=== PATIENT | male | born 1945 | race Two or more races ===

== ENCOUNTER 2024-08-16 11:37 | Emergency (ER) | payer OTHER, MEDICAID, SELFPAY ==
[2024-08-16 12:15] VITALS: BP 112/69; PULSE 73; RESP 18; TEMP 36.6; O2SAT 96; BMI 27.3
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
--- NOTE | 2024-08-16 13:00 | XR_ITS ---
Examination: CT cervical spine without contrast 2-D sagittal reconstructions 2-D coronal reconstructions 3-D reconstructions. Exam date and time:08/16/2024, 1:42 PM INDICATION: Trauma. No comparison imaging CTDI:vol (mGy) 8.26 DLP: (mGycm) 7 1 Technique: Multiple 2 mm axial sections of the cervical spine have been obtained. The coronal and sagittal reconstructions have been obtained. 3-D reconstructions have been obtained. Low dose protocols were performed. One or more of the following dose reduction techniques were used; automated exposure control, adjustment of the mA and/or KV according to patient size, use of iterative reconstruction technique. Findings: Normal cervical alignment and lordosis. No evidence of fracture, dislocation or subluxation. Multilevel degenerative changes at all levels throughout the cervical spine with disc space narrowing, endplate irregularities and large anterior marginal osteophytes. No evidence of soft tissue abnormality. Impression: No acute cervical fracture. Multilevel degenerative changes as above.
[2024-08-16 14:05] VITALS: BP 129/84; PULSE 82; RESP 16; TEMP 36.7; O2SAT 99
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
[2024-08-16 14:54] LABS: Basophils % (Auto) 0 % (0-2.5); Eosinophils # (Auto) 0.1 Thou/mm3 (0.0-0.5); Eosinophils % (Auto) 1 % (0-10); Hematocrit 38.8 % (41.0-53.0); Immature Granulocytes % (Auto) 0 % (0-0); Immature Granulocytes Auto 0.02 Thou/mm3 (0.00-0.00); Lymphocytes # (Auto) 1.4 Thou/mm3 (1.0-4.8); Lymphocytes % (Auto) 12 % (10-50); Mean Corpuscular HGB Conc 33.5 g/dl (31.0-37.0); Mean Corpuscular Hemoglobin 30.9 pg (25.0-35.0); Mean Corpuscular Volume 92 fL (80-100); Monocytes # (Auto) 0.9 Thou/mm3 (0.0-0.8); Monocytes % (Auto) 8 % (0-12); Neutrophils # (Auto) 8.4 Thou/mm3 (1.8-7.7); Neutrophils % (Auto) 77 % (37-80); Nucleated Red Blood Cell % 0 /100 WBC (0); Platelet Count 181 Thou/mm3 (140-440); RDW Standard Deviation 44.8 fL (35.1-43.9); Red Blood Count 4.21 Miln/mm3 (4.50-5.90); White Blood Count 10.9 Thou/mm3 (3.8-10.6)
[2024-08-16 15:17] LABS: INR 1.1 (0.9-1.3); Partial Thromboplastin Time 28.6 Seconds (22.0-36.0); Prothrombin Time 11.6 Seconds (9.0-12.2)
[2024-08-16 15:29] LABS: Alanine Aminotransferase 11 U/L (10-49); Albumin, Serum 3.6 gm/dL (3.4-4.8); Albumin/Globulin Ratio 1.4 (1.2-2.2); Alkaline Phosphatase 69 U/L (46-116); Anion Gap 7 (7-16); Aspartate Amino Transferase 15 U/L (0-34); BUN/Creatinine Ratio 18 Ratio (12-20); Bilirubin,Total 0.5 mg/dL (0.3-1.2); Blood Urea Nitrogen 22 mg/dL (9-23); Calcium 8.7 mg/dL (8.3-10.6); Carbon Dioxide 27.5 mMol/L (20.0-31.0); Chloride 107 mMol/L (98-107); Creatinine (Component) 1.2 mg/dL (0.6-1.3); Estimated Creatinine Clearance 46.3 mL/min (>60); Globulin 2.6 gm/dL (2.3-3.5); Glucose 114 mg/dL (74-106); Osmolality,Calculated 285 (275-295); Sodium 141 mMol/L (136-145); Total Protein 6.2 gm/dL (5.7-8.2); eGFR > 60 See Note
[2024-08-16 16:42] VITALS: BP 157/81; PULSE 70; RESP 18; TEMP 36.6; O2SAT 100
[2024-08-16] MEDS: HYDROcodone/APAP 5/325 TABLET 1 TAB PO (17:38)
[2024-08-16 18:04] VITALS: BP 131/88; PULSE 76; RESP 18; TEMP 36.6; O2SAT 100
== END 2024-08-16 18:22 | disposition home or self-care (01) ==
PROVIDERS: Emergency Provider Emergency Medicine; PCP Family Medicine
DX: S70.01XA Contusion of right hip, initial encounter (principal); S20.212A Contusion of left front wall of thorax, initial encounter; S00.93XA Contusion of unspecified part of head, initial encounter; I10 Essential (primary) hypertension; V03.90XA Pedestrian on foot injured in collision with car, pick-up truck or van, unspecified whether traffic or nontraffic accident, initial encounter; Y93.01 Activity, walking, marching and hiking; Y92.410 Unspecified street and highway as the place of occurrence of the external cause
CPT/HCPCS: 36415; 70450; 71250; 72125; 74176; 80053; 85025; 85610; 85730; 99284; A9270

== ENCOUNTER 2025-02-18 19:57 | Inpatient (IN) | payer OTHER, MEDICAID, MEDICARE, SELFPAY ==
[2025-02-18 20:08] VITALS: BP 170/93; PULSE 72; RESP 17; TEMP 37.1; O2SAT 97
[2025-02-18 20:09] VITALS: PULSE 88; RESP 18; O2SAT 96
--- NOTE | 2025-02-18 20:18 | PD.EDRME ---
Rapid Medical Screening Exam E Arrival date/time: 02/18/25 19:57 79M with history of HTN presents to ED with 1 day of ab pain and N/V. Chief Complaint: Abdominal Pain Vital signs: Vital Signs Temperature 98.8 F 02/18/25 20:08 Pulse Rate 72 02/18/25 20:08 Respiratory Rate 17 02/18/25 20:08 Blood Pressure 170/93 H 02/18/25 20:08 Pulse Oximetry (%) 97 02/18/25 20:08 Oxygen Delivery Method Room Air 02/18/25 20:08
[2025-02-18] MEDS: ONDANSETRON INJ 2 MG/ML INJ 2 ML 4 MG IV (20:51)
[2025-02-18 20:52] VITALS: BMI 24.6
[2025-02-18 20:52] LABS: Basophils # (Auto) 0.0 Thou/mm3 (0.0-0.2); Basophils % (Auto) 0 % (0-2.5); Eosinophils # (Auto) 0.0 Thou/mm3 (0.0-0.5); Eosinophils % (Auto) 0 % (0-10); Hematocrit 44.3 % (41.0-53.0); Hemoglobin 14.7 g/dL (13.5-16.0); Immature Granulocytes Auto 0.04 Thou/mm3 (0.00-0.00); Lymphocytes # (Auto) 1.1 Thou/mm3 (1.0-4.8); Lymphocytes % (Auto) 9 % (10-50); Mean Corpuscular HGB Conc 33.2 g/dl (31.0-37.0); Mean Corpuscular Hemoglobin 30.5 pg (25.0-35.0); Mean Corpuscular Volume 92 fL (80-100); Monocytes # (Auto) 0.8 Thou/mm3 (0.0-0.8); Monocytes % (Auto) 7 % (0-12); Neutrophils # (Auto) 10.2 Thou/mm3 (1.8-7.7); Neutrophils % (Auto) 84 % (37-80); Nucleated Red Blood Cell # 0.00 Thou/mm3 (0.00-0.00); Nucleated Red Blood Cell % 0 /100 WBC (0); Platelet Count 199 Thou/mm3 (140-440); RDW Standard Deviation 43.5 fL (35.1-43.9); Red Blood Count 4.82 Miln/mm3 (4.50-5.90); White Blood Count 12.2 Thou/mm3 (3.8-10.6)
--- NOTE | 2025-02-18 21:05 | PD.EDADULT ---
ED General RME/HPI General Chief complaint: Abdominal Pain Stated complaint: ABDOMINAL PAIN Time Seen by Provider: 02/18/25 20:59 Arrival date/time: 02/18/25 19:57 CC: Epigastric pain HPI onset abruptly approximately 3 hours ago denies right upper left upper quadrant abdominal pain admits to nausea and vomiting. Denies any lower quadrant abdominal pain patient states onset after eating food. No prior history of similar events. Patient is awake alert oriented with no active vomiting denies any chest pain shortness of breath or difficulty breathing. RME / HPI RME / HPI narrative: 02/18/25 19:57 79M with history of HTN presents to ED with 1 day of ab pain and N/V. Related Data Home Medications ?Medication ?Instructions ?Recorded ?Confirmed losartan 100 1 tab PO QDAY 10/31/22 02/19/25 mg-hydrochlorothiazide 12.5 mg tablet tamsulosin 0.4 mg capsule 0.4 mg PO QDAY 10/31/22 02/19/25 Allergies Allergy/AdvReac Type Severity Reaction Status Date / Time No Known Allergies Allergy Verified 02/18/25 20:09 Review of Systems Review of Systems Narrative Review of Systems: GEN: No fever, no chills, no weight loss EYES: No discharge, no visual changes, no pain HEENT: No ear pain, no congestion, no sore throat PULM: No shortness of breath, no cough, no congestion CV: No chest pain, no dyspnea on exertion, no palpitations GI: No nausea, no vomiting, no diarrhea, + pain, no constipation : No frequency, no urgency, no dysuria MUSC/SKEL: No joint pain, no back pain SKIN: No rash PSYCH: No hallucinations, no depression HEME/LYMPH: No easy bleeding or bruising tendencies NEURO: No weakness, no headache Past Medical History Past Medical History NEUROLOGIC: Negative Neurological Disorders or Seizures CARDIAC: Positive Hypertension; Negative Cardiac Disorders or Congestive Heart Failure RESPIRATORY: Negative Chronic Obstructive Pulmonary Disease (COPD) or Asthma GASTROINTESTINAL: Negative Gastrointestinal Disorders GENITOURINARY: Positive Genitourinary Disorders and Benign Prostatic Hyperplasia; Negative Renal Disease MUSCULOSKELETAL: Negative Musculoskeletal Disorders ENDOCRINE: Negative Endocrine Disorders, Diabetes Mellitus Type 1 or Diabetes Mellitus Type 2 HEMATOLOGIC: Negative Sickle Cell Disease OTHER HISTORY: Negative Blood Transfusions, Blood Transfusion Reaction, Anesthesia Reactions or Cancer Surgical History SURGICAL: Positive Eye Surgery Social History SMOKING STATUS: Never smoker SUBSTANCE USE: does not use ED Exam Narrative Physical exam: [General: In mild discomfort but not in any acute distress Head normocephalic HEENT: Within acceptable limits Neck is supple nontender Chest equal chest rise nontender to palpation Respiratory: Clear to auscultation no wheezes crackles or rubs CV: Rate rhythm is regular no murmurs rubs or clicks Abdomen: Mild epigastric pain with palpation no reflexive guarding rebound tenderness no left upper or right upper or lower abdominal pain with palpation. Positive bowel sounds all 4 quadrants. Back: No CVA tenderness no spinous process tenderness from cervical spine thoracic and lumbar spine Skin: Intact no petechiae rash induration ulceration or crepitus Extremities: Moving all extremity against resistance cap refill less than 2 seconds neurosensory intact Neuro: Awake alert oriented x3 Glascow coma 15 no focal deficits] Course Course Course Narrative: At 2248, patient's clinical presentation laboratory results and imaging discussed with Dr. Nova, who wants to wait for complete admission until the CT is read. Quality Measures none Orders Category Date Time Status CT Screening NOW Care 02/18/25 20:17 Active Insert IV NOW Care 02/18/25 20:17 Active Saline [Insert IV] NOW Care 02/18/25 21:[address] abdomen pelvis wo con Stat Exams 02/18/25 21:43 Completed US gall bladder Stat Exams 02/19/25 00:00 Completed Alcohol, Blood Medical Stat Lab 02/18/25 20:44 Completed CBC Stat Lab 02/18/25 20:44 Completed CMP [Comprehensive Metabolic Panel] Stat Lab 02/18/25 20:44 Completed Drug Screen,Urine Stat Lab 02/18/25 21:21 Completed Lipase Stat Lab 02/18/25 20:44 Completed Urinalysis, C/S if Indicated Stat Lab 02/18/25 21:21 Completed Morphine* Inj Med 02/18/25 21:41 Discontinued 4 mg IVP X1 ONE Ondansetron Inj [Zofran Inj] Med 02/18/25 20:17 Discontinued 4 mg IV X1 ONE Ondansetron Inj [Zofran Inj] Med 02/18/25 21:41 Discontinued 4 mg IVP X1 ONE Pantoprazole Inj [Protonix Inj] Med 02/18/25 20:17 Discontinued 40 mg IVP X1 ONE Sodium Chloride 0.9% 1000 ml [Ns] 1,000 ml Med 02/18/25 21:51 Active IV 100 mls/hr Sodium Chloride 0.9% 1000 ml [Ns] 1,000 ml Med 02/18/25 21:42 Discontinued IV 999 mls/hr hydrALAZINE INJ [Apresoline Inj] Med 02/18/25 21:53 Discontinued 20 mg IVP X1 ONE Vital Signs Vital signs: Vital Signs Temperature 98.8 F 02/18/25 20:08 Pulse Rate 72 02/18/25 20:08 Respiratory Rate 17 02/18/25 20:08 Blood Pressure 170/93 H 02/18/25 20:08 Pulse Oximetry (%) 97 02/18/25 20:08 Oxygen Delivery Method Room Air 02/18/25 20:08 Discharge Plan Plan Patient Disposition: Admit Acute Care w/in Hospital Patient condition on transfer: Stable Problem List Clinical Impression: Pancreatitis PA/[employer] Supervising Physician SIERRA/[employer] Supervising Physician: Tex Bal ENP [facility] Clinical Information Provided by: patient Medical Records reviewed [facility] Meds/Rx considered, not ordered None Labs/Rad/Tests considered, not ordered None Chronic Illness/Social Conditions Explain: Hypertension EKG EKG not done Labs Labs: interpreted by oh Lab(s) Interpretation(s): CMP shows CO2 of 31.3 no other electrolyte imbalances other than glucose of 196. T. bili at 0.8 AST 1689 ALT of 78, alk phos of 116 Lipase of 2853. Alcohol level is 0 UDS is negative Medication Administration(s) Medication Administration History Carvedilol (Carvedilol 3.125 Mg Tablet) 6.25 mg PO BIDWM [facility] Stop: 03/21/25 08:14 Last Admin: 02/19/25 08:33 Dose: 6.25 mg Documented By: ZORAIDA Chlordiazepoxide HCl (Chlordiazepoxide Hcl 25 Mg Capsule) 25 mg PO Q6HR PRN PRN Reason: CIWA >9 Stop: 02/21/25 00:19 Folic Acid (Folic Acid 1 Mg Tablet) 1 mg PO BID [facility] Stop: 02/24/25 08:59 Last Admin: 02/19/25 08:33 Dose: 1 mg Documented By: ZORAIDA Hydralazine HCl (Hydralazine Hcl 10 Mg Tablet) 10 mg PO TID [facility] Stop: 03/21/25 04:29 Last Admin: 02/19/25 05:40 Dose: Not Given Documented By: BATSHEVA Non-Admin Reason: medication first dose given at 0430 Admin: 02/19/25 04:34 Dose: 10 mg Documented By: BATSHEVA Sodium Chloride (Ns) 1,000 mls @ 100 mls/hr IV .Q10H ANGIE Stop: 03/20/25 21:50 Last Admin: 02/19/25 08:32 Dose: 100 mls/hr Documented By: Infusion: 02/19/25 08:32 Dose: Infused Documented By: Admin: 02/18/25 22:40 Dose: 100 mls/hr Documented By: NOBLE Morphine Sulfate (Morphine Sulf Inj 4 Mg/Ml Vial) 2 mg IVP Q2H PRN PRN Reason: PAIN SCALE 7-10 (Severe Stop: 02/23/25 23:00 Ondansetron HCl (Ondansetron Inj 2 Mg/Ml Inj 2 Ml) 4 mg IVP Q6H PRN; Protocol PRN Reason: NAUSEA OR VOMITING Stop: 03/20/25 23:14 Pantoprazole Sodium (Pantoprazole Inj 40 Mg Vial) 40 mg IVP QDAY ANGIE Stop: 03/21/25 08:59 Last Admin: 02/19/25 08:33 Dose: 40 mg Documented By: ZORAIDA Pharmacy Consult (Pharmacy To Consult Pneumovacc) 1 each XX PRN PRN PRN Reason: CONSULT Stop: 03/21/25 00:43 Thiamine HCl (Thiamine 100 Mg Tablet) 100 mg PO BID ANGIE Stop: 02/24/25 08:59 Last Admin: 02/19/25 08:33 Dose: 100 mg Documented By: ZORAIDA Discontinued Medications Hydralazine HCl (Hydralazine Inj 20 Mg/Ml Vial) 20 mg IVP X1 ONE Stop: 02/18/25 21:54 Last Admin: 02/18/25 22:03 Dose: 20 mg Documented By: NOBLE Hydralazine HCl (Hydralazine Inj 20 Mg/Ml Vial) 10 mg IVP Q6H PRN PRN Reason: Blood Pressure - High Stop: 03/20/25 23:14 Hydralazine HCl (Hydralazine Hcl 10 Mg Tablet) 10 mg PO TID STA Stop: 02/19/25 04:10 Last Admin: 02/19/25 04:37 Dose: Not Given Documented By: BATSHEVA Non-Admin Reason: Discontinued Sodium Chloride (Ns) 1,000 mls @ 999 mls/hr IV .Q1H1M ONE Stop: 02/18/25 22:42 Last Infusion: 02/18/25 22:39 Dose: Infused Documented By: Admin: 02/18/25 21:50 Dose: 999 mls/hr Documented By: NOBLE Lactated Ringer's (Lactated Ringers) 1,000 mls @ 100 mls/hr IV .Q10H ANGIE Stop: 03/20/25 23:14 Last Admin: 02/18/25 23:52 Dose: Not Given Documented By: NOBLE Non-Admin Reason: Discontinued Influenza Virus Vaccine Quadrival (Influenza Virus Quadrivalent 0.5 Ml Syringe) 0.5 ml IMi .ONCE ONE Stop: 02/19/25 00:45 Labetalol HCl (Labetalol Inj 5 Mg/Ml Vial 20 Ml) 10 mg IVP Q2H PRN PRN Reason: Blood Pressure > 160/90 Stop: 03/21/25 00:53 Morphine Sulfate (Morphine Sulf Inj 4 Mg/Ml Vial) 4 mg IVP X1 ONE Stop: 02/18/25 21:42 Last Admin: 02/18/25 21:50 Dose: 4 mg Documented By: NOBLE Ondansetron HCl (Ondansetron Inj 2 Mg/Ml Inj 2 Ml) 4 mg IV X1 ONE; Protocol Stop: 02/18/25 20:18 Last Admin: 02/18/25 20:51 Dose: 4 mg Documented By: HANNA Ondansetron HCl (Ondansetron Inj 2 Mg/Ml Inj 2 Ml) 4 mg IVP X1 ONE; Protocol Stop: 02/18/25 21:42 Last Admin: 02/18/25 21:50 Dose: 4 mg Documented By: NOBLE Pantoprazole Sodium (Pantoprazole Inj 40 Mg Vial) 40 mg IVP X1 ONE Stop: 02/18/25 20:18 Last Admin: 02/18/25 20:55 Dose: 40 mg Documented By: HANNA Pneumococcal Polyvalent Vaccine (Pneumoc 20-Loretta Conj-Dip Crm/Pf 0.5 Ml Syringe) 0.5 ml IMi .ONCE ONE Stop: 02/19/25 07:16
[2025-02-18 21:19] LABS: Alanine Aminotransferase 78 U/L (10-49); Albumin, Serum 4.5 gm/dL (3.4-4.8); Albumin/Globulin Ratio 1.6 (1.2-2.2); Alcohol, Blood Medical < 3.0 mg/dL (0-10.0); Alkaline Phosphatase 116 U/L (46-116); Anion Gap 11 (7-16); Aspartate Amino Transferase 169 U/L (0-34); BUN/Creatinine Ratio 13 Ratio (12-20); Bilirubin,Total 0.8 mg/dL (0.3-1.2); Blood Urea Nitrogen 14 mg/dL (9-23); Calcium 9.6 mg/dL (8.3-10.6); Calcium (Corrected) 9.6 mg/dL (8.5-10.1); Carbon Dioxide 31.3 mMol/L (20.0-31.0); Chloride 101 mMol/L (98-107); Creatinine (Component) 1.1 mg/dL (0.6-1.3); Estimated Creatinine Clearance 52.7 mL/min (>60); Globulin 2.8 gm/dL (2.3-3.5); Glucose 196 mg/dL (74-106); Lipase 2853 U/L (12-53); Osmolality,Calculated 290 (275-295); Potassium 3.5 mMol/L (3.4-5.1); Sodium 143 mMol/L (136-145); Total Protein 7.3 gm/dL (5.7-8.2); eGFR > 60 See Note
--- NOTE | 2025-02-18 21:43 | XR_ITS ---
Examination: CT abdomen and pelvis without contrast. Coronal 3-D reconstructions. Sagittal 2-D reconstructions. Date and time of exam: February 18, 2025, 10:30 p.m. INDICATIONS: Epigastric pain with elevated lipase noticed on examination today CTDI: vol (mGy): 7.36 DLP: (mGycm): 432 Technique: Axial images of the abdomen have been obtained, 3 mm slice thickness Intravenous contrast material has not been administered. Low dose protocols were performed. One or more of the following dose reduction techniques were used; automated exposure control, adjustment of the mA and/or KV according to patient size, use of iterative reconstruction technique. Findings: No focal liver or splenic lesions Distended gallbladder with wall thickening and edema Acute pancreatitis with significant surrounding edema, no pseudocyst Spleen is not enlarged No pancreatic or adrenal mass. Abdominal aortic calcification Abundant stool in the right colon Normal appendix Colonic diverticulosis Urinary bladder wall thickening up to 8 mm Significant prostatomegaly Moderate osteopenia IMPRESSION: Recommend hepato-biliary sonography to confirm acute cholecystitis Acute pancreatitis, no pseudocyst Normal appendix Urinary bladder wall thickening, differential would include cystitis
[2025-02-18 21:45] LABS: Collection Type, Urine Clean Catch; RBC,Urine 0 /hpf (0-3); Squamous Epithelial Cell,Urine 0 /hpf (0-5); WBC,Urine 0 /hpf (0-5)
[2025-02-18] MEDS: MORPHINE SULF INJ 4 MG/ML VIAL IVP (21:50)
[2025-02-18] MEDS: SODIUM CHLORIDE 0.9% 1000 ML 1,000 ML 999 ML IV (21:50)
[2025-02-18] MEDS: ONDANSETRON INJ 2 MG/ML INJ 2 ML 4 MG IVP (21:50)
[2025-02-18 21:55] LABS: Amphetamine/Methamp Scrn,U Negative (Negative); Barbiturate Screen,Urine Negative (Negative); Benzodiazepines Screen,Urine Negative (Negative); Benzoylecgonine Screen, Ur Negative (Negative); Fentanyl Screen,Urine Negative (Negative); Opiate Screen,Urine Negative (Negative); THC Screen,Urine Negative (Negative)
[2025-02-18 22:03] VITALS: BP 194/107; PULSE 81
[2025-02-18] MEDS: hydrALAZINE INJ 20 MG/ML VIAL IVP (22:03)
[2025-02-18 22:06] LABS: Amorphous Crystals,Urine Present (Absent); Bilirubin,Urine Negative (Negative); Blood,Urine Negative (Negative); Clarity,Urine Turbid (Clear/Hazy); Color,Urine Lt-Yellow (Lt Yel-Yel); Culture Indicated,Urine Not Indicated; Glucose, Urine 1+ (Negative); Ketones,Urine Negative (Negative); Leukocyte Esterase,Urine Negative (Negative); Nitrite,Urine Negative (Negative); PH,Urine 8.0 (5.0-7.0); Protein,Urine Negative (Neg - Trace); Specific Gravity,Urine 1.011 (1.001-1.035); Urobilinogen,Urine Negative mg/dL (0.0-1.0)
[2025-02-18 22:10] VITALS: BP 194/107; PULSE 98; RESP 18; O2SAT 98
[2025-02-18 22:40] VITALS: BP 172/84; PULSE 95; RESP 18; O2SAT 100
[2025-02-18] MEDS: SODIUM CHLORIDE 0.9% 1000 ML 1,000 ML 100 ML IV (22:40)
--- NOTE | 2025-02-18 23:10 | PD.EDADDENDU ---
Emergency Room Addendum Addendum Narrative: 2300: Care assumed from Tex Bal NP. Past medical, surgical, social and family history reviewed. Vitals and home medications reviewed. Results and treatment plan discussed. I will assume the care of the patient at this time and will follow the patient, pending gallbladder ultrasound. Please refer to the emergency department record for history and examination from initial visit.
--- NOTE | 2025-02-18 23:11 | PD.HHHP ---
Documentation for date of: 02/18/25 HPI - Hospitalist History of Present Illness History of present illness: Source: Patient CC: Abdominal pain HPI: The patient is 79 yr old male. Past medical history is significant for hypertension, BPH, alcohol use. The patient presents with abdominal pain. Onset of symptom is today. Duration is 1 day. Quality. It is sharp and annoying, continued for several hours. Aggravating factor include food intake. Associated symptoms include nausea and vomiting. He has no diarrhea no constipation. He drinks tequila every other day. There was no recent procedures and no change in medications. No use of OTC medications There was no recent travel and no sick contacts. No recent trauma or falls. Patient lives at home patient was seen in the ED. He had pancreatitis. He had abdominal pain, elevated pancreatic enzymes and CT scan changes of acute pancreatitis. Ultrasound was requested.. Patient is FULL CODE. Past medical history: No diabetes, + hypertension, no stroke, no cancer Surgical history: no appendectomy, no gallbladder surgery Personal history: non smoker, Tequila ( ETOH )drinker, no recreational drug use. Family history: no diabetes, no hypertension, no heart disease, no cancer. Review of Systems Review of Systems Systems Reviewed: All systems reviewed, normal except as documented Meds Home Medications and Allergies Home Medications ?Medication ?Instructions ?Recorded ?Confirmed ?Type cephalexin 500 mg capsule 500 mg PO QID 10/31/22 11/01/22 History losartan 100 1 tab PO QDAY 10/31/22 11/01/22 History mg-hydrochlorothiazide 12.5 mg tablet tamsulosin 0.4 mg capsule 0.4 mg PO QDAY 10/31/22 11/01/22 History Allergies Allergy/AdvReac Type Severity Reaction Status Date / Time No Known Allergies Allergy Verified 02/18/25 20:09 Exam Vital Signs Temp Pulse Resp BP Pulse Ox O2 Del Method 98.8 F 95 18 172/84 H 100 Room Air 02/18/25 20:08 02/18/25 22:40 02/18/25 22:40 02/18/25 22:40 02/18/25 22:40 02/18/25 22:40 Gen: alert, oriented, no distress Skin: warm, good turgor, no rash. No jaundice HEENT: NCAT, YOAN, no nasoaural discharge, moist mucous membranes Neck: supple, no JVD, no thyromegaly Lungs: clear to auscultation CV: regular rate and rhythm, no murmurs, no edema Abd: soft and non tender, normoactive bowel sounds, no palpable mass : no CVA tenderness Ext: no calf tenderness. Neuro: alert, oriented, non focal Psych: calm, cooperative, not depressed. Results - Hospitalist Labs Diagrams: 02/18/25 20:44 02/18/25 20:44 Labs: Short CBC 02/18/25 Range/Units 20:44 WBC 12.2 H (3.8-10.6) Thou/mm3 Hgb 14.7 (13.5-16.0) g/dL Hct 44.3 (41.0-53.0) % Plt Count 199 (140-440) Thou/mm3 BMP 02/18/25 20:44 Sodium 143 Potassium 3.5 Chloride 101 Carbon Dioxide 31.3 H BUN 14 Creatinine 1.1 Glucose 196 H Calcium 9.6 Liver Function 02/18/25 Range/Units 20:44 Total Bilirubin 0.8 (0.3-1.2) mg/dL AST 169 H (0-34) U/L ALT 78 H (10-49) U/L Alkaline Phosphatase 116 (46-116) U/L Albumin 4.5 (3.4-4.8) gm/dL Urine 02/18/25 Range/Units 21:21 Urine Color Lt-Yellow (Lt Yel-Yel) Urine Clarity Turbid A (Clear/Hazy) Urine pH 8.0 H (5.0-7.0) Ur Specific [place] 1.011 (1.001-1.035) Urine Protein Negative (Neg - Trace) Urine Glucose (UA) 1+ A (Negative) Assessment & Plan -Hospitalist Patient Synopsis Assessment and plan: This is an 79-year-old male patient who drinks tequila almost every other day presents with abdominal pain associate with nausea and vomiting of 1 day duration. Patient has elevated pancreatic enzyme, typical pain, imaging changes of pancreatitis. He will be admitted to [facility] 1. Acute pancreatitis - etiology - alcohol related --The patient will be admitted to [facility]. Pending ultrasound of the abdomen to rule out cholecystitis. -The patient will be kept n.p.o. -He will start IV fluids at 100 mL/h LR -IV Protonix 40 mg daily IV -Check lipid panel -Follow-up ultrasound report -Consider GI eval in a.m. 2. Hypertensive urgency -The patient will receive IV hydralazine 10 mg every 6 hours as needed for blood pressure greater than 160/90 -Med/tele bed. - Patient takes losartan?hydrochlorothiazide at home 3. BPH -He is on tamsulosin 4. Alcohol use - Librium protocol - check magnesium - give PPI - advise cessation of alcohol use. CODE STATUS: Full code Quality Measures Quality Measures VTE prophylaxis Advance care planning discussed with:: patient (full code)
--- NOTE | 2025-02-18 23:56 | PC.NURSE ---
REPORT GIVEN TO FLOOR RN ANIVAL
[2025-02-19] VITALS (13 sets, daily range): BP systolic 130–183; BP diastolic 83–98; PULSE 61–91; RESP 14–19; TEMP 36.2–37.2; O2SAT 97–98; BMI 23.1
--- NOTE | 2025-02-19 | XR_ITS ---
MRI abdomen, without contrast. MRCP Date and time of exam: February 19, 2025, 1308 hours INDICATIONS: Epigastric pain today, gallbladder wall appears thickened on ultrasound study today with gallstones Technique: Multiple axial and coronal images of the abdomen have been obtained with the Siemens 1.5T MRI scanner. Images obtained included T1 weighted transverse images, T2-weighted transverse images, T2-weighted transverse images fat-suppressed, T2 weighted haste fat suppressed transverse images, T1 weighted images, in and out of phase images, T2-weighted coronal images, breath hold, T2 weighted haze coronal images as well as T2 weighted coronal thick slab images, MRCP. Findings: Mild intrahepatic biliary tract dilatation Cholelithiasis There is edema around the gallbladder wall Common bile duct 6 mm no common hepatic or common bile duct stones Spleen is not enlarged Minimal edema around the pancreas No hydronephrosis No bowel obstruction Aorta normal size IMPRESSION: Acute calculus cholecystitis No common hepatic or common bile duct stones Suspicious for minimal acute pancreatitis
--- NOTE | 2025-02-19 | XR_ITS ---
Examination: Abdomen sonogram, Limited Date and time of exam: February 19, 2025, 0044 hours INDICATIONS: Burning epigastric pain beginning yesterday Technique: Real-time ge scale transabdominal sonographic images of the upper abdomen obtained. Findings: Multiple gallstones Gallbladder is distended and the gallbladder wall is abnormally thickened 0.42 cm with possible edema Common bile duct 0.4 cm Pancreatic head 2.3 cm Liver 14.4 cm smooth contour no focal liver lesions Normal hepatopetal portal venous flow Patent IVC IMPRESSION: Cholelithiasis Consider HIDA scan or MRCP follow-up to confirm acute cholecystitis
--- NOTE | 2025-02-19 01:16 | EKG_ITS ---
[facility] Test Date: 2025-02-19 Pat Name: ADRIANE PA [facility] Male Control Officer: JACI : 1945 Requested By: Narciso Mims Order Number: [id number] Reading MD: Narciso Mims Measurements Intervals [place] Rate: 89 P: 67 IN: 196 QRS: 23 QRSD: 95 T: 93 QT: 403 QTc: 491 Interpretive Statements SINUS RHYTHM WITH FREQUENT VENTRICULAR PREMATURE COMPLEXES POSSIBLE LEFT ATRIAL ENLARGEMENT MODERATE ST DEPRESSION ABNORMAL QRS-T ANGLE No previous ECG available for comparison /store/S0/[id number].pdf
--- NOTE | 2025-02-19 01:17 | PC.NURSE ---
called Dr. Nova regarding patient's rhythm showing trigeminy, patient's heart rate remaining in the 70s-90s, patient is asymptomatic, no new orders received.
--- NOTE | 2025-02-19 02:15 | PRELIM_ITS ---
Right upper quadrant abdominal ultrasound with Doppler and wave Doppler spectral analysis. February 19, 2025 0049 hours Clinical history: Abdominal pain, pancreatitis Technique: Grayscale and color flow images of the right upper quadrant are provided. Hepatic and portal veins were also imaged with color flow images. Comparison: None available at the time of this report. Findings: The liver demonstrates heterogenous echogenicity. No intrahepatic biliary ductal dilatation. Multiple gallstones at the gallbladder neck. Gallbladder wall thickening. No pericholecystic fluid is demonstrated. The common bile duct is normal in caliber at 3.7 mm. The pancreas is unremarkable to the extent visualized. The imaged portions of the right kidney are within normal limits. The portal vein is patent with hepatopetal flow and normal wave Doppler spectral analysis. The hepatic veins are patent. Calixto sign is not available at the time of this report. Impression: Findings are highly suspicious for acute calculous cholecystitis. Possible cirrhosis. Report Electronically Signed By: Kristopher Jensen 02/19/2025 2:14:52 AM [EST]
[2025-02-19 02:27] LABS: Magnesium 2.0 mg/dL (1.6-2.6); Troponin I 0.020 ng/mL (0.0-0.045)
[2025-02-19 05:59] LABS: Basophils # (Auto) 0.0 Thou/mm3 (0.0-0.2); Basophils % (Auto) 0 % (0-2.5); Eosinophils # (Auto) 0.0 Thou/mm3 (0.0-0.5); Eosinophils % (Auto) 0 % (0-10); Hematocrit 44.7 % (41.0-53.0); Hemoglobin 15.1 g/dL (13.5-16.0); Immature Granulocytes Auto 0.03 Thou/mm3 (0.00-0.00); Lymphocytes # (Auto) 1.2 Thou/mm3 (1.0-4.8); Lymphocytes % (Auto) 11 % (10-50); Mean Corpuscular HGB Conc 33.8 g/dl (31.0-37.0); Mean Corpuscular Hemoglobin 30.8 pg (25.0-35.0); Mean Corpuscular Volume 91 fL (80-100); Monocytes # (Auto) 0.7 Thou/mm3 (0.0-0.8); Monocytes % (Auto) 6 % (0-12); Neutrophils # (Auto) 9.0 Thou/mm3 (1.8-7.7); Neutrophils % (Auto) 82 % (37-80); Nucleated Red Blood Cell # 0.00 Thou/mm3 (0.00-0.00); Nucleated Red Blood Cell % 0 /100 WBC (0); Platelet Count 200 Thou/mm3 (140-440); RDW Standard Deviation 43.4 fL (35.1-43.9); Red Blood Count 4.91 Miln/mm3 (4.50-5.90); White Blood Count 11.0 Thou/mm3 (3.8-10.6)
[2025-02-19 06:38] LABS: Alanine Aminotransferase 127 U/L (10-49); Albumin, Serum 4.0 gm/dL (3.4-4.8); Albumin/Globulin Ratio 1.5 (1.2-2.2); Alkaline Phosphatase 127 U/L (46-116); Anion Gap 9 (7-16); Aspartate Amino Transferase 125 U/L (0-34); BUN/Creatinine Ratio 10 Ratio (12-20); Bilirubin,Total 0.5 mg/dL (0.3-1.2); Blood Urea Nitrogen 9 mg/dL (9-23); Calcium 9.0 mg/dL (8.3-10.6); Calcium (Corrected) 9.0 mg/dL (8.5-10.1); Carbon Dioxide 29.9 mMol/L (20.0-31.0); Cardiac Risk Estimate 2.1 RATIO (4.0-6.7); Chloride 106 mMol/L (98-107); Cholesterol 88 mg/dL (132-200); Creatinine (Component) 0.9 mg/dL (0.6-1.3); Estimated Creatinine Clearance 64.4 mL/min (>60); Globulin 2.7 gm/dL (2.3-3.5); Glucose 118 mg/dL (74-106); HDL Cholesterol 42 mg/dL (40-60); LDL Cholesterol,Calculated 37 mg/dL (0-130); Magnesium 2.0 mg/dL (1.6-2.6); Osmolality,Calculated 288 (275-295); Potassium 3.7 mMol/L (3.4-5.1); Sodium 145 mMol/L (136-145); Total Protein 6.7 gm/dL (5.7-8.2); Triglycerides 47 mg/dL (30-150); eGFR > 60 See Note
--- NOTE | 2025-02-19 07:42 | PC.NURSE ---
Pt's blood pressure is 183/92. HR is 85. No other symptoms. Contacted Dr. Montez. Waiting for new orders.
[2025-02-19] MEDS: SODIUM CHLORIDE 0.9% 1000 ML 1,000 ML 100 ML IV (08:32)
[2025-02-19] MEDS: THIAMINE 100 MG TABLET PO ×2 (08:33→21:05)
[2025-02-19] MEDS: FOLIC ACID 1 MG TABLET PO ×2 (08:33→21:05)
--- NOTE | 2025-02-19 10:50 | PC.SS ---
SS attempted to see patient but he was not in room. MRI pending
[2025-02-19 11:31] LABS: Hepatitis A Antibody IgM Non Reactive (Non React); Hepatitis B Core Antibody IgM Non Reactive (Non React); Hepatitis B Surface Antigen Non Reactive (Non React); Hepatitis C Antibody Non Reactive (Non React)
--- NOTE | 2025-02-19 12:59 | PD.HHPROG ---
Documentation for date of: 02/19/25 Subjective - Hospitalist Subjective Interval history: Complains of vague abdominal pain and nausea. No episode of vomiting. Noted to have high blood pressure otherwise hemodynamically stable. Review of Systems Review of Systems Narrative Review of Systems: Negative except as above Exam Vital Signs Temp Pulse Resp BP Pulse Ox O2 Del Method 97.8 F 66 19 159/91 H 98 Room Air 02/19/25 12:00 02/19/25 12:00 02/19/25 12:00 02/19/25 12:00 02/19/25 12:00 02/19/25 12:00 Additional findings Additional findings: Gen: alert, oriented, no distress Skin: warm, good turgor, no rash. No jaundice HEENT: NCAT, YOAN, no nasoaural discharge, moist mucous membranes Neck: supple, no JVD, no thyromegaly Lungs: clear to auscultation CV: regular rate and rhythm, no murmurs, no edema Abd: soft and mildly tender in the umbilical region, normoactive bowel sounds, no palpable mass : no CVA tenderness Ext: no calf tenderness. Neuro: alert, oriented, non focal Psych: calm, cooperative, not depressed. Objective - Hospitalist Labs Diagram: 02/19/25 05:35 02/19/25 05:35 Labs: Laboratory Results - last 24 hr 02/18/25 02/18/25 02/19/25 20:44 21:21 01:44 WBC 12.2 H RBC 4.82 Hgb 14.7 Hct 44.3 MCV 92 MCH 30.5 MCHC 33.2 RDW Std Deviation 43.5 Plt Count 199 Neut % (Auto) 84 H Lymph % (Auto) 9 L [place] % (Auto) 7 Eos % (Auto) 0 Baso % (Auto) 0 Neut # (Auto) 10.2 H Lymph # (Auto) 1.1 [place] # (Auto) 0.8 Eos # (Auto) 0.0 Baso # (Auto) 0.0 Immature Gran # (Auto) 0.04 H Absolute Nucleated RBC 0.00 Immature Gran % 0 Nucleated RBC % 0 Sodium 143 Potassium 3.5 Chloride 101 Carbon Dioxide 31.3 H Anion Gap 11 BUN 14 Creatinine 1.1 Estim Creat Clear Calc 52.7 L eGFR > 60 BUN/Creatinine Ratio 13 Glucose 196 H Calculated Osmolality 290 Calcium 9.6 Corrected Calcium 9.6 Magnesium 2.0 Total Bilirubin 0.8 AST 169 H ALT 78 H Alkaline Phosphatase 116 Troponin I 0.020 Total Protein 7.3 Albumin 4.5 Globulin 2.8 Albumin/Globulin Ratio 1.6 Triglycerides Cholesterol LDL Cholesterol, Calc HDL Cholesterol Cholesterol/HDL Ratio Lipase 2853 H* Ur Collection Type Clean Catch Urine Color Lt-Yellow Urine Clarity Turbid A Urine pH 8.0 H Ur Specific [place] 1.011 Urine Protein Negative Urine Glucose (UA) 1+ A Urine Ketones Negative Urine Blood Negative Urine Nitrite Negative Urine Bilirubin Negative Urine Urobilinogen (Auto) Negative Ur Leukocyte Esterase Negative Urine RBC 0 Urine WBC 0 Ur Squamous Epith Cells 0 Amorphous Crystals Present A Urine Bacteria None Ur Culture Indicated? Not Indicated Urine Opiates Screen Negative Urine Fentanyl Screen Negative Ur Barbiturates Screen Negative U Amphetamin/Meth Scrn Negative U Benzodiazepines Scrn Negative U Cocaine Metab Screen Negative U Marijuana (THC) Screen Negative Ethyl Alcohol < 3.0 Hepatitis A IgM Ab Non Reactive Hep Bs Antigen Non Reactive Hep B Core IgM Ab Non Reactive Hepatitis C Antibody Non Reactive 02/19/25 05:35 WBC 11.0 H RBC 4.91 Hgb 15.1 Hct 44.7 MCV 91 MCH 30.8 MCHC 33.8 RDW Std Deviation 43.4 Plt Count 200 Neut % (Auto) 82 H Lymph % (Auto) 11 [place] % (Auto) 6 Eos % (Auto) 0 Baso % (Auto) 0 Neut # (Auto) 9.0 H Lymph # (Auto) 1.2 [place] # (Auto) 0.7 Eos # (Auto) 0.0 Baso # (Auto) 0.0 Immature Gran # (Auto) 0.03 H Absolute Nucleated RBC 0.00 Immature Gran % 0 Nucleated RBC % 0 Sodium 145 Potassium 3.7 Chloride 106 Carbon Dioxide 29.9 Anion Gap 9 BUN 9 Creatinine 0.9 Estim Creat Clear Calc 64.4 eGFR > 60 BUN/Creatinine Ratio 10 L Glucose 118 H D Calculated Osmolality 288 Calcium 9.0 Corrected Calcium 9.0 Magnesium 2.0 Total Bilirubin 0.5 AST 125 H ALT 127 H Alkaline Phosphatase 127 H Troponin I Total Protein 6.7 Albumin 4.0 D Globulin 2.7 Albumin/Globulin Ratio 1.5 Triglycerides 47 Cholesterol 88 L LDL Cholesterol, Calc 37 HDL Cholesterol 42 Cholesterol/HDL Ratio 2.1 L Lipase Ur Collection Type Urine Color Urine Clarity Urine pH Ur Specific [place] Urine Protein Urine Glucose (UA) Urine Ketones Urine Blood Urine Nitrite Urine Bilirubin Urine Urobilinogen (Auto) Ur Leukocyte Esterase Urine RBC Urine WBC Ur Squamous Epith Cells Amorphous Crystals Urine Bacteria Ur Culture Indicated? Urine Opiates Screen Urine Fentanyl Screen Ur Barbiturates Screen U Amphetamin/Meth Scrn U Benzodiazepines Scrn U Cocaine Metab Screen U Marijuana (THC) Screen Ethyl Alcohol Hepatitis A IgM Ab Hep Bs Antigen Hep B Core IgM Ab Hepatitis C Antibody Assessment & Plan Assessment: An 79-year-old male with heavy EtOH use disorder, HTN presents with abdominal pain associate with nausea and vomiting and admitted for acute pancreatitis Likely secondary to EtOH. Hemodynamically stable, lipase significantly elevated> 3000, LFTs moderately elevated however no significant obstructive pattern, troponin within normal limits, EKG revealing normal sinus rhythm with frequent PVCs. CT abdomen/pelvis inconclusive however patient has significant findings consistent with acute pancreatitis. US hepatobiliary did reveal concern for cholecystitis as well. Remained n.p.o. overnight, LFTs within normal limits. - Continue IV fluids at 100 mL/h LR -IV Protonix 40 mg daily IV - Will get MRCP for further evaluation of obstructive etiology - Start on Coreg 6.25 mg twice daily for HTN control - start on losartan 25 mg daily, discontinue hydralazine - Discontinue hydrochlorothiazide likely contributing to pancreatitis - Resume tamsulosin - Will place on CIWA protocol with Librium Time Spent with Patient Time: Total time spent is greater than 50% in coordination of care (as documented) at patient's floor/unit and/or counseling patient: Time with patient: 25 - 35 minutes Reason for Continued Stay Reason for continued stay: further dx testing Quality Measures Quality Measures none Advance care planning discussed with:: patient
--- NOTE | 2025-02-19 13:19 | PC.PT ---
PT eval only as patient requested to have no further PT sessions in the hospital or post D/C. Patient was xI with bed mobility and transfers and required CGA with ambulation sometimes using the SPC. Patient is safe to ambulate to the bathroom and in the halls with a SPC and 1 staff assist. RN made aware.
[2025-02-19] MEDS: LOSARTAN POTASSIUM 25 MG TABLET PO (14:38)
--- NOTE | 2025-02-19 15:54 | PC.SS ---
Patient is alert/oriented. Patient was able to verify demographics. Patient resides alone at [facility]. Patient is independent with ADL's. Patient only uses a cane. He states his cousins stop by regularly to check in on him. Patient follows at [facility] with Dr. Leone. Last appt. was a month ago. Transportation: family or [facility]. Patient will return home upon discharge. Alt medical decision maker: cousin, Rosalind Farrisado,
[2025-02-20] VITALS (8 sets, daily range): BP systolic 153–162; BP diastolic 85–95; PULSE 61–88; RESP 12–18; TEMP 36.4–37.1; O2SAT 95–98
[2025-02-20] MEDS: SODIUM CHLORIDE 0.9% 1000 ML 1,000 ML 100 ML IV ×3 (01:23→21:33)
[2025-02-20 05:55] LABS: Basophils # (Auto) 0.0 Thou/mm3 (0.0-0.2); Basophils % (Auto) 0 % (0-2.5); Eosinophils # (Auto) 0.2 Thou/mm3 (0.0-0.5); Eosinophils % (Auto) 3 % (0-10); Hematocrit 39.4 % (41.0-53.0); Hemoglobin 12.9 g/dL (13.5-16.0); Immature Granulocytes Auto 0.04 Thou/mm3 (0.00-0.00); Lymphocytes # (Auto) 1.4 Thou/mm3 (1.0-4.8); Lymphocytes % (Auto) 15 % (10-50); Mean Corpuscular HGB Conc 32.7 g/dl (31.0-37.0); Mean Corpuscular Hemoglobin 30.5 pg (25.0-35.0); Mean Corpuscular Volume 93 fL (80-100); Monocytes # (Auto) 0.7 Thou/mm3 (0.0-0.8); Monocytes % (Auto) 7 % (0-12); Neutrophils # (Auto) 7.1 Thou/mm3 (1.8-7.7); Neutrophils % (Auto) 75 % (37-80); Nucleated Red Blood Cell # 0.00 Thou/mm3 (0.00-0.00); Nucleated Red Blood Cell % 0 /100 WBC (0); Platelet Count 168 Thou/mm3 (140-440); RDW Standard Deviation 44.8 fL (35.1-43.9); Red Blood Count 4.23 Miln/mm3 (4.50-5.90); White Blood Count 9.5 Thou/mm3 (3.8-10.6)
[2025-02-20 06:27] LABS: Alanine Aminotransferase 64 U/L (10-49); Albumin, Serum 3.4 gm/dL (3.4-4.8); Albumin/Globulin Ratio 1.5 (1.2-2.2); Alkaline Phosphatase 100 U/L (46-116); Anion Gap 9 (7-16); Aspartate Amino Transferase 36 U/L (0-34); BUN/Creatinine Ratio 15 Ratio (12-20); Bilirubin,Direct 0.3 mg/dL (0.0-0.3); Bilirubin,Total 0.7 mg/dL (0.3-1.2); Blood Urea Nitrogen 12 mg/dL (9-23); Calcium 8.3 mg/dL (8.3-10.6); Calcium (Corrected) 8.8 mg/dL (8.5-10.1); Carbon Dioxide 24.8 mMol/L (20.0-31.0); Chloride 108 mMol/L (98-107); Creatinine (Component) 0.8 mg/dL (0.6-1.3); Estimated Creatinine Clearance 72.4 mL/min (>60); Globulin 2.2 gm/dL (2.3-3.5); Glucose 84 mg/dL (74-106); Lipase 262 U/L (12-53); Osmolality,Calculated 281 (275-295); Potassium 3.7 mMol/L (3.4-5.1); Sodium 142 mMol/L (136-145); Total Protein 5.6 gm/dL (5.7-8.2); eGFR > 60 See Note
[2025-02-20] MEDS: THIAMINE 100 MG TABLET PO ×2 (08:42→20:35)
[2025-02-20] MEDS: FOLIC ACID 1 MG TABLET PO ×2 (08:42→20:35)
[2025-02-20] MEDS: LOSARTAN POTASSIUM 25 MG TABLET PO (08:42)
--- NOTE | 2025-02-20 13:00 | PD.HHPROG ---
Documentation for date of: 02/20/25 Subjective - Hospitalist Subjective Interval history: Has mild abdominal pain and right upper quadrant tenderness. No more nausea or vomiting. Denies chest pain, shortness of breath Review of Systems Review of Systems Narrative Review of Systems: Negative except as above Exam Vital Signs Temp Pulse Resp BP Pulse Ox O2 Del Method 98.8 F 71 14 159/91 H 95 Room Air 02/20/25 12:00 02/20/25 12:00 02/20/25 12:00 02/20/25 12:00 02/20/25 12:00 02/20/25 12:00 Additional findings Additional findings: Gen: alert, oriented, no distress Skin: warm, good turgor, no rash. No jaundice HEENT: NCAT, YOAN, no nasoaural discharge, moist mucous membranes Neck: supple, no JVD, no thyromegaly Lungs: clear to auscultation CV: regular rate and rhythm, no murmurs, no edema Abd: soft and mildly tender in the RUQ region, normoactive bowel sounds, no palpable mass : no CVA tenderness Ext: no calf tenderness. Neuro: alert, oriented, non focal Psych: calm, cooperative, not depressed. Objective - Hospitalist Labs Diagram: 02/20/25 05:00 02/20/25 05:00 Labs: Laboratory Results - last 24 hr 02/20/25 05:00 WBC 9.5 RBC 4.23 L Hgb 12.9 L D Hct 39.4 L MCV 93 MCH 30.5 MCHC 32.7 RDW Std Deviation 44.8 H Plt Count 168 D Neut % (Auto) 75 Lymph % (Auto) 15 [place] % (Auto) 7 Eos % (Auto) 3 Baso % (Auto) 0 Neut # (Auto) 7.1 Lymph # (Auto) 1.4 [place] # (Auto) 0.7 Eos # (Auto) 0.2 Baso # (Auto) 0.0 Immature Gran # (Auto) 0.04 H Absolute Nucleated RBC 0.00 Immature Gran % 0 Nucleated RBC % 0 Sodium 142 Potassium 3.7 Chloride 108 H Carbon Dioxide 24.8 Anion Gap 9 BUN 12 Creatinine 0.8 Estim Creat Clear Calc 72.4 eGFR > 60 BUN/Creatinine Ratio 15 Glucose 84 Calculated Osmolality 281 Calcium 8.3 Corrected Calcium 8.8 Total Bilirubin 0.7 Direct Bilirubin 0.3 AST 36 H ALT 64 H Alkaline Phosphatase 100 D Total Protein 5.6 L Albumin 3.4 D Globulin 2.2 L Albumin/Globulin Ratio 1.5 Lipase 262 H D Assessment & Plan Patient Synopsis Assessment: An 79-year-old male with heavy EtOH use disorder, HTN presents with abdominal pain associate with nausea and vomiting and admitted for acute pancreatitis Likely secondary to EtOH. Hemodynamically stable, lipase significantly elevated> 3000 however has improved, LFTs moderately elevated however no significant obstructive pattern, troponin within normal limits, EKG revealing normal sinus rhythm with frequent PVCs. CT abdomen/pelvis inconclusive however patient has significant findings consistent with acute pancreatitis. US hepatobiliary did reveal concern for cholecystitis as well. MRCP obtained to rule out pancreatic malignancy noted to have acute cholecystitis with significant wall edema. General surgery is consulted. HTN is better controlled - Continue IV fluids at 125 mL/h LR - IV Protonix 40 mg daily IV - Keep n.p.o., consulted general surgery pending evaluation - Continue Coreg 6.25 mg twice daily for HTN control - Increase losartan to 50mg daily, discontinue hydralazine - Discontinue hydrochlorothiazide likely contributing to pancreatitis - Resume tamsulosin - Will place on CIWA protocol with Librium Lovenox for DVT prophylaxis. Time Spent with Patient Time: Total time spent is greater than 50% in coordination of care (as documented) at patient's floor/unit and/or counseling patient: Time with patient: 25 - 35 minutes Reason for Continued Stay Reason for continued stay: further monitoring and surgical intervention Quality Measures Quality Measures none Advance care planning discussed with:: patient
[2025-02-20] MEDS: ENOXAPARIN SOD INJ 40 MG/0.4 ML SYRINGE SC (13:51)
--- NOTE | 2025-02-20 21:02 | PD.SURCONS ---
HPI Consult details Consult date: 02/20/25 Reason for consultation narrative: Gallstone pancreatitis History of present illness: 79-year-old male with history of hypertension, BPH, alcohol and tobacco use disorder was admitted with abdominal pain with nausea and vomiting. This pain was in the epigastric and right upper quadrant rating to his back. He denies fever, chills, jaundice or discoloration of urine or stool. He denies having similar symptoms in the past. He had mild elevation of transaminases and elevated lipase. Radiographic evaluation including abdominal ultrasound, CT scan of abdomen and pelvis and MRCP were performed that revealed gallstones with gallbladder wall thickening and michelle-cholecystic edema, and acute pancreatitis. Review of Systems Constitutional Constitutional: Denies chills and Denies fever(s) Cardiovascular Cardiovascular: Denies chest pain Respiratory Respiratory: Denies cough Gastrointestinal Gastrointestinal: Reports abdominal pain, Reports nausea and Reports vomiting Genitourinary Genitourinary: Denies difficulty urinating Musculoskeletal Musculoskeletal: Reports back pain Hematologic/Lymphatic Hematologic/Lymphatic: Denies easy bleeding and Denies easy bruising Past Medical History Surgical History OTHER SURGICAL HX: No surgeries in the past Social History SMOKING STATUS: Current every day smoker SUBSTANCE USE: does not use ALCOHOL: Current Meds Home Medications and Allergies Home Medications ?Medication ?Instructions ?Recorded ?Confirmed ?Type losartan 100 1 tab PO QDAY 10/31/22 02/19/25 History mg-hydrochlorothiazide 12.5 mg tablet tamsulosin 0.4 mg capsule 0.4 mg PO QDAY 10/31/22 02/19/25 History Allergies Allergy/AdvReac Type Severity Reaction Status Date / Time No Known Allergies Allergy Verified 02/18/25 20:09 Exam Vital Signs Temp Pulse Resp BP Pulse Ox O2 Del Method 98.5 F 71 18 155/85 H 97 Room Air 02/20/25 20:00 02/20/25 20:00 02/20/25 20:00 02/20/25 20:00 02/20/25 20:00 02/20/25 20:00 Constitutional Constitutional: no acute distress Routine HEENT Exam Eye: Present PERRL (Anicteric sclera) Routine Abdominal Exam Abdominal: Present soft, normoactive bowel sounds and tenderness (Mild tenderness to deep palpation in epigastric and right upper quadrant, no rebound tenderness or peritonitis at this time); Absent distended Results Results: Laboratory Laboratory results: results reviewed Results: Imaging Imaging narrative: Abdominal u/s CT scan of abdomen and pelvis and MRCP findings reviewed, radiologist's interpretation noted. Assessment & Plan Problem List (1) Biliary acute pancreatitis without necrosis or infection: Status: Acute Plan Will plan for laparoscopic possible open cholecystectomy with possible cholangiogram tomorrow if symptoms continue to improve. Risks include but not limited to infection, bleeding, injury to bowel, liver, stomach, bile duct, retained stone, bile leak, abdominal sepsis and or abscess, need for further procedure or operation, pneumonia and blood clot discussed with the patient. Benefits alternatives explained to him, all his questions answered, he agreed and consented to proceed with the operation.
[2025-02-21] VITALS (18 sets, daily range): BP systolic 130–182; BP diastolic 62–105; PULSE 58–100; RESP 12–19; TEMP 36–36.9; O2SAT 93–100
[2025-02-21 05:47] LABS: Basophils # (Auto) 0.0 Thou/mm3 (0.0-0.2); Basophils % (Auto) 1 % (0-2.5); Eosinophils # (Auto) 0.3 Thou/mm3 (0.0-0.5); Eosinophils % (Auto) 4 % (0-10); Hematocrit 40.9 % (41.0-53.0); Hemoglobin 13.9 g/dL (13.5-16.0); Immature Granulocytes Auto 0.03 Thou/mm3 (0.00-0.00); Lymphocytes # (Auto) 1.4 Thou/mm3 (1.0-4.8); Lymphocytes % (Auto) 16 % (10-50); Mean Corpuscular HGB Conc 34.0 g/dl (31.0-37.0); Mean Corpuscular Hemoglobin 30.8 pg (25.0-35.0); Mean Corpuscular Volume 91 fL (80-100); Monocytes # (Auto) 0.6 Thou/mm3 (0.0-0.8); Monocytes % (Auto) 7 % (0-12); Neutrophils # (Auto) 6.4 Thou/mm3 (1.8-7.7); Neutrophils % (Auto) 73 % (37-80); Nucleated Red Blood Cell # 0.00 Thou/mm3 (0.00-0.00); Nucleated Red Blood Cell % 0 /100 WBC (0); Platelet Count 185 Thou/mm3 (140-440); RDW Standard Deviation 42.0 fL (35.1-43.9); Red Blood Count 4.51 Miln/mm3 (4.50-5.90); White Blood Count 8.8 Thou/mm3 (3.8-10.6)
[2025-02-21 06:17] LABS: Alanine Aminotransferase 46 U/L (10-49); Albumin, Serum 3.7 gm/dL (3.4-4.8); Albumin/Globulin Ratio 1.4 (1.2-2.2); Alkaline Phosphatase 100 U/L (46-116); Anion Gap 11 (7-16); Aspartate Amino Transferase 21 U/L (0-34); BUN/Creatinine Ratio 14 Ratio (12-20); Bilirubin,Total 0.7 mg/dL (0.3-1.2); Blood Urea Nitrogen 11 mg/dL (9-23); Calcium 8.6 mg/dL (8.3-10.6); Calcium (Corrected) 8.8 mg/dL (8.5-10.1); Carbon Dioxide 25.4 mMol/L (20.0-31.0); Chloride 105 mMol/L (98-107); Creatinine (Component) 0.8 mg/dL (0.6-1.3); Estimated Creatinine Clearance 72.4 mL/min (>60); Globulin 2.6 gm/dL (2.3-3.5); Glucose 79 mg/dL (74-106); Osmolality,Calculated 279 (275-295); Potassium 3.5 mMol/L (3.4-5.1); Sodium 141 mMol/L (136-145); Total Protein 6.3 gm/dL (5.7-8.2); eGFR > 60 See Note
[2025-02-21] MEDS: SODIUM CHLORIDE 0.9% 1000 ML 1,000 ML 100 ML IV ×2 (08:39→23:24)
--- NOTE | 2025-02-21 09:35 | PC.NURSE ---
lovenox held for procedure
--- NOTE | 2025-02-21 10:30 | XR_ITS ---
EXAMINATION: Operative cholangiogram single view TECHNIQUE: AP portable supine abdomen single view Date and time: February 21, 2025, 11:02 a.m. INDICATIONS: Laparoscopic cholecystectomy today FINDINGS: Normal-sized common bile duct no stones noted No obstruction, contrast in the duodenum IMPRESSION: No stones in the biliary tree identified Negative for common bile duct obstruction
--- NOTE | 2025-02-21 11:40 | ESOP_ITS ---
Date of Procedure 02/21/25 Pre Op Diagnosis Gallstone pancreatitis Post Op Diagnosis Cholelithiasis with cholecystitis Procedure Laparoscopic cholecystectomy with intraoperative cholangiogram Findings Distended gallbladder with multiple gallstones and chronic cholecystitis. Cholangiogram revealed no obvious CBD stones, anterior surface of the liver was smooth without significant nodularities Procedure Description Patient was brought into the operating room in supine position. After administration of general endotracheal anesthesia abdomen was prepped and draped in standard surgical manner. A Veress needle was inserted through the umbilicus and pneumoperitoneum was obtained up to 15 mmHg. The Veress needle was then removed, a 5 mm infraumbilical incision was made and the 5mm trocar was inserted. Laparoscopic camera was placed. Under direct visualization a laparoscopic camera a 10 mm trocar was placed in subxiphoid and two 5 mm trocars placed in right upper quadrant. Anterior surface of the liver appeared smooth without significant nodularities. The gallbladder was identified and was noted to be moderately distended with multiple gallstones and chronic cholecystitis. It was retracted cephalad and laterally. Dissection started near the infundibulum of gallbladder where cystic duct and gallbladder junction clearly identified. The cystic duct was circumferentially dissected off the peritoneum and surrounding inflammatory tissue. The critical view of safety was clearly demonstrated. An Endo Clip placed near the cystic duct and gallbladder junction and a small ductotomy was performed. Cholangiogram catheter was placed through the ductotomy site and contrast was injected. Cholangiogram x-ray was obtained and revealed filling of contrast into the duodenum without obvious CBD stones. The cholangiogram catheter was removed and the cystic duct was divided between 2 endoclips proximally and one distally. The cystic artery was similarly divided between 2 endoclips proximally and 1 distally. The gallbladder was then from the liver bed using electrocautery. The gallbladder was then placed inside an Endo Catch and removed from the abdomen utilizing subxiphoid trocar site. The area was copiously and thoroughly washed and irrigated, all the fluid was suctioned and the suction fluid returned clear. Hemostasis achieved using electrocautery. Endoclips noted be in place and intact without any bleeding or any leakage. Hemostasis was adequate and satisfactory. The subxiphoid trocar sites fascial defect was closed with 0 Vicryl using Endo Closure device. Instruments and trocars removed, pneumoperitoneum was evacuated and the incisions closed with 4-0 Monocryl in subcuticular fashion. Instrument needle and sponge counts were all reported to be correct X2. Patient tolerated the procedure well, was extubated, breathing spontaneously and without difficulty and was transferred to postanesthesia care in stable condition. Anesthesia GETA and local Pathology / specimen Other (Gallbladder and contents) Estimated Blood Loss 25 Condition Stable Disposition PACU Surgeon En Gannon MD Surgical Staff Operation Date: 02/21/25 10:45 Case Staff AGRICULTURE RESEARCH DIRECTOR: Abhishek Brewer RN First Assistant: Carla Simons
--- NOTE | 2025-02-21 11:54 | SUR.PHASEI ---
1138 PATIENT RECEIVED INTO [facility], REPORT REVEIVED FROM BYRON CORRALES AND MALLY COBB. PATIENT HAS ORAL AIRWAY, VITAL SIGNS STABLE NO DISTRESS NOTED DRESSING INTACT AND DRESSED WITH DERMABOND.
--- NOTE | 2025-02-21 11:56 | SUR.PHASEI ---
1156 ORAL AIRWAY REMOVED, PATIENT MORE AWAKE.
--- NOTE | 2025-02-21 12:11 | SUR.PHASEI ---
1211 PATIENT DENIES ANY NAUSEA, PAIN OR DISCOMFORT, REFUSING WATER.
--- NOTE | 2025-02-21 12:21 | SUR.PHASEI ---
1215 REPORT GIVEN TO NURSE, PATIENT TRANSFERRED BACK TO ROOM 355 IN STABLE CONDITION.
[2025-02-21] MEDS: hydrALAZINE INJ 20 MG/ML VIAL 10 MG IVP (12:37)
--- NOTE | 2025-02-21 13:25 | ESPR_ITS ---
<Statement entered by Anastasia Alcala MD - 02/21/25 15:47> 79-year-old male was admitted for Gallstoner pancreatitis treatment and management #Gallstone pancreatitis No acute overnight events. Labs and vitals were stable. Surgery evaluated the patient, plan is to do cholecystectomy today with perioperative cholangiogram to assess CBD. Continue current management, continue IVF , pain managemant as needed. follow-up with surgery recs #Hypertension Continue Coreg and losartan #Alc use disorder extensively counceled . I personally saw and examined the patient and discussed the assessment and plan with the entire medicine team, including my attending , Anastasia Alcala M.D. PGY-3 Disclaimer: Despite multiple revisions, due to the dictation software being used, the document bellow may not be free of grammatical errors including phonetic/typographic errors. However, this does not deter from our commitment to providing health care in the patient's best interest in mind. Documentation for date of: 02/21/25 Subjective Subjective Interval history: Labs reviewed and patient examined at the bedside. Patient received cholecystectomy today. Patient is on IV Protonix and Coreg 6.25 mg p.o. twice daily. Currently receiving folic acid and thiamine. Denies chest pain, palpation, SOB, N/V, fevers or chills. Exam Vital Signs Temp Pulse Resp BP Pulse Ox O2 Del Method O2 Flow Rate 96.8 F 73 16 178/95 H 93 L Room Air 4 02/21/25 12:38 02/21/25 12:38 02/21/25 12:38 02/21/25 12:38 02/21/25 12:38 02/21/25 12:38 02/21/25 11:50 Narrative Exam General: No acute distress, well nourished, AAO x3 Eye: PERRL, EOMI, normal conjunctiva, no scleral icterus HENT: Normocephalic, atraumatic, hearing intact to conversation at normal volume, moist oral mucosa Neck: Supple, non-tender, no JVD, no lymphadenopathy Lungs: Non-labored respirations, symmetric chest rise, Clear to auscultate bilaterally, No wheezing, rhonchi, crackles Heart: Peripheral pulses intact bilaterally, Regular Rate and Rhythm. Abdomen: Soft, non-tender, non-distended, no palpable masses Musculoskeletal: Normal range of motion and strength, No cyanosis or edema, No visible joint swelling Skin: Skin is warm, dry, no rashes or lesions. Psychiatric: Cooperative, appropriate mood and affect, Awake and alert, not agitated Neuro: Cranial nerves II-XII grossly intact. Strength 5/5 throughout. Sensations intact to light touch. Objective Labs 02/21/25 05:33 02/21/25 05:33 Labs: Laboratory Results - last 24 hr 02/21/25 05:33 WBC 8.8 RBC 4.51 Hgb 13.9 Hct 40.9 L MCV 91 MCH 30.8 MCHC 34.0 RDW Std Deviation 42.0 Plt Count 185 Neut % (Auto) 73 Lymph % (Auto) 16 [place] % (Auto) 7 Eos % (Auto) 4 Baso % (Auto) 1 Neut # (Auto) 6.4 Lymph # (Auto) 1.4 [place] # (Auto) 0.6 Eos # (Auto) 0.3 Baso # (Auto) 0.0 Immature Gran # (Auto) 0.03 H Absolute Nucleated RBC 0.00 Immature Gran % 0 Nucleated RBC % 0 Sodium 141 Potassium 3.5 Chloride 105 Carbon Dioxide 25.4 Anion Gap 11 BUN 11 Creatinine 0.8 Estim Creat Clear Calc 72.4 eGFR > 60 BUN/Creatinine Ratio 14 Glucose 79 Calculated Osmolality 279 Calcium 8.6 Corrected Calcium 8.8 Total Bilirubin 0.7 AST 21 ALT 46 Alkaline Phosphatase 100 Total Protein 6.3 Albumin 3.7 Globulin 2.6 Albumin/Globulin Ratio 1.4 Quality Measures Quality Measures none Advance care planning discussed with:: patient Assessment & Plan Assessment Current Active Medications: Generic Name Dose Route Start Last Admin Trade Name Freq PRN Reason Stop Dose Admin Hydrocodone Bitart/Acetaminophen 1 tab 02/21/25 12:46 Hydrocodone/Apap 5/325 Tablet PO 02/26/25 12:45 Q6HR PRN PAIN 1-6 (mild-mod Albuterol/Ipratropium 3 ml 02/21/25 10:39 Albuterol/Ipratropium (Duoneb) Rt Marsha 3 Ml Nebu INH 03/23/25 10:38 Q4HRRT PRN SHORTNESS OF BREATH Carvedilol 6.25 mg 02/19/25 08:15 02/21/25 09:34 Carvedilol 3.125 Mg Tablet PO 03/21/25 08:14 Not Given BIDWM [facility] Docusate Sodium 100 mg 02/21/25 21:00 Docusate Sod 100 Mg Capsule PO 03/23/25 20:59 BID [facility] Protocol Enoxaparin Sodium 40 mg 02/20/25 13:15 02/21/25 09:34 Enoxaparin Sod Inj 40 Mg/0.4 Ml Syringe SC 03/06/25 13:14 Not Given QDAY ANGIE Folic Acid 1 mg 02/19/25 09:00 02/21/25 09:34 Folic Acid 1 Mg Tablet PO 02/24/25 08:59 Not Given BID ANGIE Sodium Chloride 1,000 mls @ 100 mls/hr 02/18/25 21:51 02/21/25 08:39 Ns IV 03/20/25 21:50 100 mls/hr .Q10H ANGIE Administration Losartan Potassium 50 mg 02/21/25 09:00 02/21/25 09:34 Losartan Potassium 25 Mg Tablet PO 03/23/25 08:59 Not Given QDAY ANGIE Morphine Sulfate 2 mg 02/18/25 23:01 Morphine Sulf Inj 4 Mg/Ml Vial IVP 02/23/25 23:00 Q2H PRN PAIN SCALE 7-10 (Severe Ondansetron HCl 4 mg 02/18/25 23:06 Ondansetron Inj 2 Mg/Ml Inj 2 Ml IVP 03/20/25 23:14 Q6H PRN NAUSEA OR VOMITING Protocol Pantoprazole Sodium 40 mg 02/19/25 09:00 02/21/25 08:39 Pantoprazole Inj 40 Mg Vial IVP 03/21/25 08:59 40 mg QDAY AGNIE Administration Thiamine HCl 100 mg 02/19/25 09:00 02/21/25 09:35 Thiamine 100 Mg Tablet PO 02/24/25 08:59 Not Given BID ANGIE Plan 79 yr old male with past medical history is significant for hypertension, BPH, alcohol use. The patient presents with abdominal pain. Patient was admitted for management of gallstone pancreatitis #Acute gallstone pancreatitis #Acute calculous Cholecystitis #Leukocytosis -Ddx for pancreatitis, likely multifactorial. Gall stone VS alcohol -Elevated WBC count: 12.2 on admission -Significantly elevated lipase 2853 (on 02/18). -CT abd/pelvis (02/18/2025): Acute pancreatitis, no pseudocyst, Normal appendix -Gall Bladder US (02/19/2025): Cholelithiasis -MRCP (02/19/2025): Acute calculus cholecystitis, No common hepatic or common bile duct stones, Suspicious for minimal acute pancreatitis -Cholangigram, Operative (02/21/2025): No stones in the biliary tree identified, Negative for common bile duct obstruction -Patient received cholecystectomy on 02/21/2025. Plan: -1L NS maintenance fluid 100 mL/hr (moderate fluid infusion) to improve pancreatic perfusion and prevent hypovolemia -IV protonix 40mgqd -Consulted General Surgery, recommendation appreciated #Hypertension Continue Coreg and losartan #BPH -On tamsulosin #Alcohol use disorder -Education on cessation of alcohol Disposition:Med surg Diet: Full liquid diet GI prophylaxis: IV protonix DVT prophylaxis: Lovenox 40mg SC qd Code: FULL Assessment and plan discussed with my attending physician Dr. Hutchinson and Dr. Alcala (PGY-3) Dr. Thomas (PGY-1) - Internal medicine resident Attending Provider Attestation/Addendum Angelica Prakash DO, attest that I was physically present for the yousif portions of the service and evaluated the patient with the resident and I reviewed and discussed the case with the resident and agree with the resident's findings and plans of care as documented above #Acute cholecystitis #Acute Pancreatitis, likely multifactorial, secondary to alcohol versus above #Hypertensive urgency #Chronic Alcohol use #BPH Patient seen and evaluated this afternoon. He is s/p laparascopic cholecystectomy due to gallstone pancreatitis. Patient currently has no acute complaints. He is somnolent due to sedation, but easily arousable. He denies any pain. Incisions are clean, dry and intact. Will continue with current management. Diet to be advanced by surgeon. Patient has otherwise been afebrile. Anticipate DC within next 24-48h
[2025-02-21] MEDS: HYDROcodone/APAP 5/325 TABLET 1 TAB PO ×2 (16:48→23:47)
[2025-02-21] MEDS: DOCUSATE SOD 100 MG CAPSULE PO (21:00)
[2025-02-21] MEDS: FOLIC ACID 1 MG TABLET PO (21:00)
[2025-02-21] MEDS: THIAMINE 100 MG TABLET PO (21:00)
[2025-02-22] VITALS (12 sets, daily range): BP systolic 138–175; BP diastolic 87–110; PULSE 69–94; RESP 15–20; TEMP 36.6–37.1; O2SAT 92–96; BMI 24.2
[2025-02-22 06:59] LABS: Basophils # (Auto) 0.0 Thou/mm3 (0.0-0.2); Basophils % (Auto) 0 % (0-2.5); Eosinophils # (Auto) 0.1 Thou/mm3 (0.0-0.5); Eosinophils % (Auto) 1 % (0-10); Hematocrit 40.6 % (41.0-53.0); Hemoglobin 13.7 g/dL (13.5-16.0); Immature Granulocytes Auto 0.02 Thou/mm3 (0.00-0.00); Lymphocytes # (Auto) 1.1 Thou/mm3 (1.0-4.8); Lymphocytes % (Auto) 12 % (10-50); Mean Corpuscular HGB Conc 33.7 g/dl (31.0-37.0); Mean Corpuscular Hemoglobin 30.9 pg (25.0-35.0); Mean Corpuscular Volume 91 fL (80-100); Monocytes # (Auto) 0.7 Thou/mm3 (0.0-0.8); Monocytes % (Auto) 8 % (0-12); Neutrophils # (Auto) 7.0 Thou/mm3 (1.8-7.7); Neutrophils % (Auto) 78 % (37-80); Nucleated Red Blood Cell # 0.00 Thou/mm3 (0.00-0.00); Nucleated Red Blood Cell % 0 /100 WBC (0); Platelet Count 175 Thou/mm3 (140-440); RDW Standard Deviation 42.4 fL (35.1-43.9); Red Blood Count 4.44 Miln/mm3 (4.50-5.90); White Blood Count 8.9 Thou/mm3 (3.8-10.6)
[2025-02-22 07:34] LABS: Alanine Aminotransferase 68 U/L (10-49); Albumin, Serum 3.4 gm/dL (3.4-4.8); Albumin/Globulin Ratio 1.5 (1.2-2.2); Alkaline Phosphatase 111 U/L (46-116); Anion Gap 10 (7-16); Aspartate Amino Transferase 59 U/L (0-34); BUN/Creatinine Ratio 14 Ratio (12-20); Bilirubin,Total 0.7 mg/dL (0.3-1.2); Blood Urea Nitrogen 11 mg/dL (9-23); Calcium 8.2 mg/dL (8.3-10.6); Calcium (Corrected) 8.7 mg/dL (8.5-10.1); Carbon Dioxide 25.5 mMol/L (20.0-31.0); Chloride 105 mMol/L (98-107); Creatinine (Component) 0.8 mg/dL (0.6-1.3); Estimated Creatinine Clearance 72.4 mL/min (>60); Globulin 2.3 gm/dL (2.3-3.5); Glucose 91 mg/dL (74-106); Magnesium 1.7 mg/dL (1.6-2.6); Osmolality,Calculated 278 (275-295); Phosphorous 2.8 mg/dL (2.4-5.1); Potassium 3.8 mMol/L (3.4-5.1); Sodium 140 mMol/L (136-145); Total Protein 5.7 gm/dL (5.7-8.2); eGFR > 60 See Note
--- NOTE | 2025-02-22 09:17 | CHAP ---
Responded to Rapid Response/. There was no family present. All was well. (09:17)
--- NOTE | 2025-02-22 09:20 | EKG_ITS ---
[facility] Test Date: 2025-02-22 Pat Name: ADRIANE PA [facility] It Field Technician: FRANKIE : 1945 Requested By: Anastasia Alcala Order Number: [id number] Reading MD: Anastasia Alcala Measurements Intervals [place] Rate: 83 P: 7 CA: 176 QRS: 33 QRSD: 97 T: -11 QT: 387 QTc: 455 Interpretive Statements SINUS RHYTHM WITH OCCASIONAL VENTRICULAR PREMATURE COMPLEXES POSSIBLE LEFT ATRIAL ENLARGEMENT NONSPECIFIC T-WAVE ABNORMALITY Compared to ECG 02/19/2025 01:29:50 T-wave abnormality now present ST (T wave) deviation no longer present /store/S0/[id number].pdf
[2025-02-22] MEDS: MORPHINE SULF INJ 4 MG/ML VIAL 2 MG IVP (09:21)
[2025-02-22] MEDS: SODIUM CHLORIDE 0.9% 1000 ML 1,000 ML 100 ML IV (09:27)
[2025-02-22] MEDS: THIAMINE 100 MG TABLET PO ×2 (09:28→20:56)
[2025-02-22] MEDS: LOSARTAN POTASSIUM 25 MG TABLET 50 MG PO (09:29)
[2025-02-22] MEDS: FOLIC ACID 1 MG TABLET PO ×2 (09:29→20:56)
[2025-02-22] MEDS: DOCUSATE SOD 100 MG CAPSULE PO ×2 (09:29→20:56)
[2025-02-22] MEDS: ENOXAPARIN SOD INJ 40 MG/0.4 ML SYRINGE SC (09:29)
--- NOTE | 2025-02-22 09:36 | EVENTNT_ITS ---
<Statement entered by Rian Saab MD - 02/22/25 16:58> I have personally seen and examined the patient. I agree with the resident's assessment and plan as documented below. Rian Saab DO PGY-2 Internal Medicine - [facility] Documentation for date of: 02/22/25 Event Note Event Note: Rapid called for patient Chente CordobayM for 02/12 chest pain at AM9:18 on 02/22/2025. At the time, vitals were Temperature 98.2 F, BP167/110, OR 81, RR 15, SpO2 96% on room air. Of note, patient received cholecystectomy yesterday 02/21. Stat troponin and EKG has been ordered. EKG revealed sinus rhythm with PVC. Patient was given morphine 2 mg IV. Assessment and plan discussed with my attending physician Dr. Hutchinson and Dr. Saab (PGY-2) Dr. Thomas (PGY-1) - Internal medicine resident
--- NOTE | 2025-02-22 09:36 | PD.RESEVENT ---
Documentation for date of: 02/22/25 Event Note Event Note: Rapid called for patient Chente Hu 79yM for 02/12 chest pain at AM9:18 on 02/22/2025. At the time, vitals were Temperature 98.2 F, BP167/110, IL 81, RR 15, SpO2 96% on room air. Of note, patient received cholecystectomy yesterday 02/21. Stat troponin and EKG has been ordered. EKG revealed sinus rhythm with PVC. Patient was given morphine 2 mg IV. Assessment and plan discussed with my attending physician Dr. Hutchinson and Dr. Saab (PGY-2) Dr. Thomas (PGY-1) - Internal medicine resident
--- NOTE | 2025-02-22 09:41 | PC.SS ---
Follow up note: Pt had surgery yesterday. Pt will return home upon dc.
[2025-02-22 10:24] LABS: Troponin I 0.025 ng/mL (0.0-0.045)
--- NOTE | 2025-02-22 11:59 | PD.SURPROG ---
Documentation for date of: 02/22/25 Subjective Subjective Narrative: Patient is seen and examined. He is resting comfortably. He is tolerating clear liquids without nausea or vomiting. There is minimal epigastric incisional pain Exam Vital Signs Temp Pulse Resp BP Pulse Ox O2 Del Method O2 Flow Rate 98.2 F 81 15 167/110 H 96 Room Air 4 02/22/25 11:21 02/22/25 11:21 02/22/25 11:21 02/22/25 11:21 02/22/25 11:21 02/22/25 08:00 02/21/25 11:50 Constitutional Constitutional: no acute distress Routine Abdominal Exam Comments: Abdomen is soft and nondistended. Incisions are clean, dry and intact Assessment & Plan Assessment Additional comments: Postop day #1 status post laparoscopic cholecystectomy with cholangiogram Plan Advance to low-fat diet. May discharge home from surgical standpoint PROCEDURES: Procedures Laparoscopic cholecystectomy with intraoperative cholangiogram
--- NOTE | 2025-02-22 13:13 | ESPR_ITS ---
<Statement entered by Rian Saab MD - 02/22/25 16:47> Patient seen and assessed in hospital bed denies having any concerning symptoms at this time. Patient is postop day 1 from laparoscopic cholecystectomy with intraoperative cholangiography which did not show any retained stones in the common bile duct. Patient had a rapid response as noted in previous note for epigastric abdominal pain secondary to trocar site inflammation. Troponin and EKG were unremarkable and we will continue managing patient's pain. Will continue advancing diet and expect discharge within the next 24 hours. I have personally seen and examined the patient. I agree with the resident's assessment and plan as documented below. Rian Saab DO PGY-2 Internal Medicine - [facility] Documentation for date of: 02/22/25 Subjective Subjective Interval history: No Overnight events. Labs reviewed and patient examined at the bedside. Rapid event called this morning for chest pain. However the chest pain was around the epigastric region around his surgical site from cholecystectomy yesterday and reproducible with palpation. Patient's vital was stable. Patient was given morphine IV 2 mg. Ordered troponin which was 0.025, and EKG showed sinus rhythm with PVC. Patient was tolerating clear liquid diets without nausea or vomiting and his incision sites was clear, no erythema, and no drainage. Patient will be at the hospital for 1 more day before discharge. Denies chest pain, palpation, SOB, N/V, fevers or chills. Exam Vital Signs Temp Pulse Resp BP Pulse Ox O2 Del Method O2 Flow Rate 98.5 F 73 18 163/96 H 95 Room Air 4 02/22/25 12:00 02/22/25 12:00 02/22/25 12:00 02/22/25 12:00 02/22/25 12:00 02/22/25 12:00 02/21/25 11:50 Narrative Exam General: No acute distress, well nourished, AAO x3 Eye: PERRL, EOMI, normal conjunctiva, no scleral icterus HENT: Normocephalic, atraumatic, hearing intact to conversation at normal volume, moist oral mucosa Neck: Supple, non-tender, no JVD, no lymphadenopathy Lungs: Non-labored respirations, symmetric chest rise, Clear to auscultate bilaterally, No wheezing, rhonchi, crackles Heart: Peripheral pulses intact bilaterally, Regular Rate and Rhythm. Abdomen: Soft, non-distended, no palpable masses, tender on papation around his surgical site on epigastric region. Musculoskeletal: Normal range of motion and strength, No cyanosis or edema, No visible joint swelling Skin: Skin is warm, dry, no rashes or lesions. Psychiatric: Cooperative, appropriate mood and affect, Awake and alert, not agitated Neuro: Cranial nerves II-XII grossly intact. Strength 5/5 throughout. Sensations intact to light touch. Objective Labs 02/22/25 06:10 02/22/25 06:10 Labs: Laboratory Results - last 24 hr 02/22/25 02/22/25 06:10 09:21 WBC 8.9 RBC 4.44 L Hgb 13.7 Hct 40.6 L MCV 91 MCH 30.9 MCHC 33.7 RDW Std Deviation 42.4 Plt Count 175 Neut % (Auto) 78 Lymph % (Auto) 12 [place] % (Auto) 8 Eos % (Auto) 1 Baso % (Auto) 0 Neut # (Auto) 7.0 Lymph # (Auto) 1.1 [place] # (Auto) 0.7 Eos # (Auto) 0.1 Baso # (Auto) 0.0 Immature Gran # (Auto) 0.02 H Absolute Nucleated RBC 0.00 Immature Gran % 0 Nucleated RBC % 0 Sodium 140 Potassium 3.8 Chloride 105 Carbon Dioxide 25.5 Anion Gap 10 BUN 11 Creatinine 0.8 Estim Creat Clear Calc 72.4 eGFR > 60 BUN/Creatinine Ratio 14 Glucose 91 Calculated Osmolality 278 Calcium 8.2 L Corrected Calcium 8.7 Phosphorus 2.8 Magnesium 1.7 Total Bilirubin 0.7 AST 59 H ALT 68 H Alkaline Phosphatase 111 Troponin I 0.025 Total Protein 5.7 Albumin 3.4 Globulin 2.3 Albumin/Globulin Ratio 1.5 Quality Measures Quality Measures none Advance care planning discussed with:: patient Assessment & Plan Assessment Current Active Medications: Generic Name Dose Route Start Last Admin Trade Name Freq PRN Reason Stop Dose Admin Hydrocodone Bitart/Acetaminophen 1 tab 02/21/25 12:46 02/21/25 23:47 Hydrocodone/Apap 5/325 Tablet PO 02/26/25 12:45 1 tab Q6HR PRN Administration PAIN 1-6 (mild-mod Albuterol/Ipratropium 3 ml 02/21/25 10:39 Albuterol/Ipratropium (Duoneb) Rt Marsha 3 Ml Nebu INH 03/23/25 10:38 Q4HRRT PRN SHORTNESS OF BREATH Carvedilol 6.25 mg 02/19/25 08:15 02/22/25 09:28 Carvedilol 3.125 Mg Tablet PO 03/21/25 08:14 6.25 mg BIDWM ANGIE Administration Docusate Sodium 100 mg 02/21/25 21:00 02/22/25 09:29 Docusate Sod 100 Mg Capsule PO 03/23/25 20:59 100 mg BID ANGIE Administration Protocol Enoxaparin Sodium 40 mg 02/20/25 13:15 02/22/25 09:29 Enoxaparin Sod Inj 40 Mg/0.4 Ml Syringe SC 03/06/25 13:14 40 mg QDAY ANGIE Administration Folic Acid 1 mg 02/19/25 09:00 02/22/25 09:29 Folic Acid 1 Mg Tablet PO 02/24/25 08:59 1 mg BID ANGIE Administration Losartan Potassium 50 mg 02/21/25 09:00 02/22/25 09:29 Losartan Potassium 25 Mg Tablet PO 03/23/25 08:59 50 mg QDAY ANGIE Administration Morphine Sulfate 2 mg 02/18/25 23:01 02/22/25 09:21 Morphine Sulf Inj 4 Mg/Ml Vial IVP 02/23/25 23:00 2 mg Q2H PRN Administration PAIN SCALE 7-10 (Severe Ondansetron HCl 4 mg 02/18/25 23:06 Ondansetron Inj 2 Mg/Ml Inj 2 Ml IVP 03/20/25 23:14 Q6H PRN NAUSEA OR VOMITING Protocol Pantoprazole Sodium 40 mg 02/19/25 09:00 02/22/25 09:29 Pantoprazole Inj 40 Mg Vial IVP 03/21/25 08:59 40 mg QDAY ANGIE Administration Thiamine HCl 100 mg 02/19/25 09:00 02/22/25 09:28 Thiamine 100 Mg Tablet PO 02/24/25 08:59 100 mg BID ANGIE Administration Plan 79 yr old male with past medical history is significant for hypertension, BPH, alcohol use. The patient presents with abdominal pain. Patient was admitted for management of gallstone pancreatitis #Acute gallstone pancreatitis #Acute calculous Cholecystitis #Leukocytosis -Ddx for pancreatitis, likely multifactorial. Gall stone VS alcohol -Elevated WBC count: 12.2 on admission -Significantly elevated lipase 2853 (on 02/18). -CT abd/pelvis (02/18/2025): Acute pancreatitis, no pseudocyst, Normal appendix -Gall Bladder US (02/19/2025): Cholelithiasis -MRCP (02/19/2025): Acute calculus cholecystitis, No common hepatic or common bile duct stones, Suspicious for minimal acute pancreatitis -Cholangigram, Operative (02/21/2025): No stones in the biliary tree identified, Negative for common bile duct obstruction -Patient received cholecystectomy on 02/21/2025. Plan: -IV protonix 40mg qd -Consulted General Surgery, recommendation appreciated -Pending discharge within 24-48 hrs -Will continue to monitor. #Hypertension Continue Coreg and losartan #BPH -On tamsulosin #Alcohol use disorder -Education on cessation of alcohol Disposition:Med surg Diet: Full liquid diet GI prophylaxis: IV protonix DVT prophylaxis: Lovenox 40mg SC qd Code: FULL Assessment and plan discussed with my attending physician Dr. Evangelina Thomas (PGY-1) - Internal medicine resident Attending Provider Attestation/Addendum Angelica Prakash DO, attest that I was physically present for the yousif portions of the service and evaluated the patient with the resident and I reviewed and discussed the case with the resident and agree with the resident's findings and plans of care as documented above #Acute gallstone pancreatitis #Acute calculous Cholecystitis #Hypertension #BPH #Alcohol use disorder Patient seen and evaluated this AM. Patient had a rapid response due epigastric/chest pain. Patient had been eating breakfast laying down at time of onset of pain. Troponin was ordered, detectable, but negative. EKG was done showing sinus rhtym with PVCs, no ST or T wave changes on my interpretation. Pain improved with morphine. Upon reevaluation, patient had pain that appeared more in his epigastric region. It appears that the pain is more incisional. No abdominal distension noted. Abdomen is soft. Incisions are clean, dry and intact. Patient denies any bowel movements or flatus. He was able to tolerate diet otherwise. Will continue to monitor at this time. Anticipate DC within next 24h. F/u with surgery recs. Encouraged patient to ambulate and use IS.
[2025-02-22] MEDS: HYDROcodone/APAP 5/325 TABLET 1 TAB PO (15:58)
[2025-02-22] MEDS: TAMSULOSIN HCL 0.4 MG CAPSULE PO (15:58)
[2025-02-23] VITALS (7 sets, daily range): BP systolic 124–164; BP diastolic 66–98; PULSE 74–80; RESP 18–20; TEMP 36.2–36.9; O2SAT 96–98
[2025-02-23 05:37] LABS: Basophils # (Auto) 0.0 Thou/mm3 (0.0-0.2); Basophils % (Auto) 0 % (0-2.5); Eosinophils # (Auto) 0.2 Thou/mm3 (0.0-0.5); Eosinophils % (Auto) 3 % (0-10); Hematocrit 39.7 % (41.0-53.0); Hemoglobin 13.3 g/dL (13.5-16.0); Immature Granulocytes Auto 0.04 Thou/mm3 (0.00-0.00); Lymphocytes # (Auto) 1.3 Thou/mm3 (1.0-4.8); Lymphocytes % (Auto) 16 % (10-50); Mean Corpuscular HGB Conc 33.5 g/dl (31.0-37.0); Mean Corpuscular Hemoglobin 30.3 pg (25.0-35.0); Mean Corpuscular Volume 90 fL (80-100); Monocytes # (Auto) 0.7 Thou/mm3 (0.0-0.8); Monocytes % (Auto) 9 % (0-12); Neutrophils # (Auto) 5.7 Thou/mm3 (1.8-7.7); Neutrophils % (Auto) 72 % (37-80); Nucleated Red Blood Cell # 0.00 Thou/mm3 (0.00-0.00); Nucleated Red Blood Cell % 0 /100 WBC (0); Platelet Count 182 Thou/mm3 (140-440); RDW Standard Deviation 41.8 fL (35.1-43.9); Red Blood Count 4.39 Miln/mm3 (4.50-5.90); White Blood Count 7.9 Thou/mm3 (3.8-10.6)
[2025-02-23 06:22] LABS: Alanine Aminotransferase 56 U/L (10-49); Albumin, Serum 3.6 gm/dL (3.4-4.8); Albumin/Globulin Ratio 1.4 (1.2-2.2); Alkaline Phosphatase 103 U/L (46-116); Anion Gap 11 (7-16); Aspartate Amino Transferase 37 U/L (0-34); BUN/Creatinine Ratio 18 Ratio (12-20); Bilirubin,Total 0.6 mg/dL (0.3-1.2); Blood Urea Nitrogen 14 mg/dL (9-23); Calcium 8.5 mg/dL (8.3-10.6); Calcium (Corrected) 8.8 mg/dL (8.5-10.1); Carbon Dioxide 24.9 mMol/L (20.0-31.0); Chloride 103 mMol/L (98-107); Creatinine (Component) 0.8 mg/dL (0.6-1.3); Estimated Creatinine Clearance 70.1 mL/min (>60); Globulin 2.5 gm/dL (2.3-3.5); Glucose 118 mg/dL (74-106); Magnesium 1.7 mg/dL (1.6-2.6); Osmolality,Calculated 279 (275-295); Phosphorous 2.3 mg/dL (2.4-5.1); Potassium 3.4 mMol/L (3.4-5.1); Sodium 139 mMol/L (136-145); Total Protein 6.1 gm/dL (5.7-8.2); eGFR > 60 See Note
[2025-02-23] MEDS: THIAMINE 100 MG TABLET PO (08:12)
[2025-02-23] MEDS: TAMSULOSIN HCL 0.4 MG CAPSULE PO (08:12)
[2025-02-23] MEDS: LOSARTAN POTASSIUM 25 MG TABLET 50 MG PO (08:12)
[2025-02-23] MEDS: DOCUSATE SOD 100 MG CAPSULE PO (08:12)
[2025-02-23] MEDS: FOLIC ACID 1 MG TABLET PO (08:13)
[2025-02-23] MEDS: ENOXAPARIN SOD INJ 40 MG/0.4 ML SYRINGE SC (08:13)
--- NOTE | 2025-02-23 14:01 | ESDS_ITS ---
<Statement entered by Janeth Reed MD - 02/26/25 17:20> I reviewed above note and agree with findings and plans. I have also personally examined the patient with medicine team and went over assessment and plan with medical team including agronomy internship and resident physician. Planned Discharge Date 02/23/25 DS: Providers Provider Date of admission: 02/18/25 23:01 Primary care physician: Physician No Primary/Family Admitting Provider: Narciso Nova MD Attending Provider on Admission: Angelica Hutchinson DO Consults: 02/19/25 01:07 Referral Physical Therapy Routine Comment: Physician Instructions: Referral Respiratory Therapy Routine Comment: 02/20/25 14:27 Consult to General Surgery Routine Comment: Acute calculus Cholecystitis. Consulting Provider: En Gannon Attending Provider on DC: Leonel Thomas DO Discharging Provider: Leonel Thomas DO DS: Diagnosis Problem List Completed Was Problem List Reviewed/Reconciled?: Yes Hospital Course Hospital Course Hospital course: Summary: Fritz Cross is 79 yr old male with PMG of hypertension, BPH, alcohol use presented with abdominal pain. CT abdomen/pelvis showing acute pancreatitis, lipase elevated to 2853, gallbladder ultrasound showed cholelithiasis and MRCP showed acute calculous cholecystitis. Cholecystectomy has been done on 02/21/2025 along with cholangiogram which showed no stones in the biliary tree and negative common bile duct obstruction. Patient has been discharged the next day with Coreg and losartan as his blood pressure medication. ED course: Vitals: Temp:98.8, TX:72, RR:17, BP:170/93, 97% O2sat on Room air Labs: WBC:12.2, AST:169, ALT:78, ALP:127, Troponin: 0.020, Lipase: 2853 CT abd/pelvis (02/18/2025): Acute pancreatitis, no pseudocyst, Normal appendix In ED, patient was given, hydralazine, IV bolus NS 1L x2, Protonix IV 40mg x1, Zofran 4mg IV x2, and morphine 4mg IVx1 Hospital Course: Upon admission, Gall Bladder US (02/19/2025) showed Cholelithiasis, and MRCP (02/19/2025) showed Acute calculus cholecystitis, No common hepatic or common bile duct stones, Suspicious for minimal acute pancreatitis. Cholecystomy has been one on 02/21/2025 along with Cholangiogram which showed No stones in the biliary tree identified, Negative for common bile duct obstruction. Patient's vitals and labs has been stable after the procedure and surgical site was clean, dry, without erythema or drainage. Patient has been taking Coreg 6.25mg PO bid and Losartan 50mg PO qd for his hypertension. Patient has been discharged the next day. Instructions: Please take carvedilol 6.25 mg tablet by mouth twice a day with meals for high blood pressure and STOP taking losartan?hydrochlorothiazide Take Losartan 50 mg by mouth daily for hypertension Please take folic acid and thiamine vitamin for supplementation Continue taking tamsulosin Please follow-up with your PCP within 1 week of discharge or follow-up at the [facility] [address] [place] [address] Follow-up with general surgery within 1 or 2 weeks of discharge If your symptoms worsen or if you develop new chest pain, shortness of breath, severe abdominal pain or bleeding - please come back to the ED immediately #Acute gallstone pancreatitis #Acute calculous Cholecystitis #Leukocytosis #Hypertension #BPH #Alcohol use disorder Assessment and plan discussed with my attending physician Dr. Derek Thomas (PGY-1) - Internal medicine resident Status at Discharge Overall status at discharge: patient is back to baseline Time Spent with Patient Time attestation: Total time spent providing and/or coordinating discharge services: Time spent: Greater than 30 minutes Exam Vital Signs Temp Pulse Resp BP Pulse Ox O2 Del Method O2 Flow Rate 97.1 F 80 18 153/91 H 98 Room Air 4 02/23/25 12:00 02/23/25 12:00 02/23/25 12:00 02/23/25 12:00 02/23/25 12:00 02/23/25 12:00 02/21/25 11:50 Narrative Exam General: No acute distress, well nourished, AAO x3 Eye: PERRL, EOMI, normal conjunctiva, no scleral icterus HENT: Normocephalic, atraumatic, hearing intact to conversation at normal volume, moist oral mucosa Neck: Supple, non-tender, no JVD, no lymphadenopathy Lungs: Non-labored respirations, symmetric chest rise, Clear to auscultate bilaterally, No wheezing, rhonchi, crackles Heart: Peripheral pulses intact bilaterally, Regular Rate and Rhythm. Abdomen: Soft, non-distended, no palpable masses, minimal tenderness on palpation around his surgical site on epigastric region. Musculoskeletal: Normal range of motion and strength, No cyanosis or edema, No visible joint swelling Skin: Skin is warm, dry, no rashes or lesions. Psychiatric: Cooperative, appropriate mood and affect, Awake and alert, not agitated Neuro: Cranial nerves II-XII grossly intact. Strength 5/5 throughout. Sensations intact to light touch. Discharge Plan Plan Patient Disposition: HOME (Self Care) Patient condition on transfer: Stable Care Plan Goals: Please take carvedilol 6.25 mg tablet by mouth twice a day with meals for high blood pressure and STOP taking losartan?hydrochlorothiazide Take Losartan 50 mg by mouth daily for hypertension Please take folic acid and thiamine vitamin for supplementation Continue taking tamsulosin Please follow-up with your PCP within 1 week of discharge or follow-up at the [facility] [address] [place] [address] Follow-up with general surgery within 1 or 2 weeks of discharge If your symptoms worsen or if you develop new chest pain, shortness of breath, severe abdominal pain or bleeding - please come back to the ED immediately Prescriptions/Referrals Prescriptions/Med Rec: New thiamine mononitrate (vit B1) 100 mg Tablet 100 mg PO BID 30 Days Qty: 60 0RF folic acid 1 mg Tablet 1 mg PO BID 30 Days Qty: 60 0RF carvedilol 6.25 mg tablet 6.25 mg PO BIDWM 30 Days Qty: 60 0RF losartan 50 mg tablet 50 mg PO QDAY 30 Days Qty: 30 0RF Continued tamsulosin 0.4 mg capsule 0.4 mg PO QDAY Patient Comments: GEE Carlton FOR 30 DAYS Discontinued losartan-hydrochlorothiazide 100-12.5 mg tablet 1 tab PO QDAY Patient Comments: GEE Carlton Referrals: En Gannon MD [Physician, General Surgery] No Primary/Family,Physician [Primary Care Provider] Patient/Caregiver Discharge Instructions Discharge Activity: activity as tolerated Education Materials: Preventing Surgical Site Infections Print Language: Ivorian Activity Restrictions/Additional Instructions: May shower in 24 hours. Avoid lifting, straining, pulling or pushing for 4 weeks. May take over the counter laxatives if no bowel movement in 2 days. Follow up with Dr. Gannon in 2 weeks, call [phone] for an appointment. Continue low-fat diet for 1 week then advance diet as tolerated. Stand Alone Forms: [employer] Award Info., Patient Portal Info Letter Discharge Order Discharge Orders: Discharge (Routine); Ordered 02/23/25 Ordered By: Rian Saab Quality Discharge Quality Measures VTE prophylaxis
== END 2025-02-23 12:45 | disposition home or self-care (01) | DRG 419 ==
LOC: SERX 22:49 → SERHOLD 02-19 00:12 → S2NX 02-19 02:12 → S3NX 02-19 05:47 → SERHOLD 02-19 05:47
PROVIDERS: Physician Assistant; Student in an Organized Health Care Education/Training Program; Surgery; Admitting Provider Internal Medicine; Emergency Provider Emergency Medicine; Visit Provider Internal Medicine
PROC: 0FT44ZZ Resection of Gallbladder, Percutaneous Endoscopic Approach (ICD-10-PCS; CPT 47562; principal; 2025-02-21 10:30)
DX: K85.20 Alcohol induced acute pancreatitis without necrosis or infection (principal); I10 Essential (primary) hypertension; N40.0 Benign prostatic hyperplasia without lower urinary tract symptoms; I16.0 Hypertensive urgency; F10.10 Alcohol abuse, uncomplicated; Y90.0 Blood alcohol level of less than 20 mg/100 ml; K85.10 Biliary acute pancreatitis without necrosis or infection; F17.200 Nicotine dependence, unspecified, uncomplicated; Z79.899 Other long term (current) drug therapy
CPT/HCPCS: 36415; 74176; 74181; 74300; 76705; 80053; 80061; 80074; 80076; 80307; 80320; 81001; 83690; 83735; 84100; 84484; 85025; 93005; 93225; 94664; 96361; 96374; 96375; 96376; 97162; A4217; A4649; J0360; J0694; J1100; J1650; J2270; J2405; J2470; J2704; J3010; J3490; J7030; A9270; G0480

== ENCOUNTER 2025-04-03 19:17 | Emergency (ER) | payer OTHER, MEDICAID, SELFPAY ==
[2025-04-03 19:20] VITALS: PULSE 62; O2SAT 98; BMI 25.0
[2025-04-03 19:23] VITALS: BP 153/75; PULSE 63; RESP 18; TEMP 36.5; O2SAT 98
--- NOTE | 2025-04-03 19:27 | PD.EDMALE ---
ED Male Genitalurinary RME/HPI General Chief complaint: Extremity Problem,Nontraumatic Stated complaint: AB PAIN Time Seen by Provider: 04/03/25 19:29 Arrival date/time: 04/03/25 19:17 RME / HPI RME / HPI Narrative: See [facility] for Dr. Lewis's HPI Documentation. Related Data Home Medications ?Medication ?Instructions ?Recorded ?Confirmed tamsulosin 0.4 mg capsule 0.4 mg PO QDAY 10/31/22 02/19/25 Previous Rx's ?Medication ?Instructions ?Recorded acetaminophen 300 mg-codeine 30 mg 1 tab PO Q8H PRN pain #20 tabs 04/03/25 tablet lidocaine 5 % topical patch 1 patch topical QDAY PRN pain #30 04/03/25 (Lidoderm) ea Allergies Allergy/AdvReac Type Severity Reaction Status Date / Time No Known Allergies Allergy Verified 04/03/25 19:20 Review of Systems Review of Systems Systems Reviewed: All systems reviewed, normal except as documented Past Medical History Past Medical History CARDIAC: Positive Hypertension GASTROINTESTINAL: Positive Pancreatitis GENITOURINARY: Positive Genitourinary Disorders and Benign Prostatic Hyperplasia Surgical History SURGICAL: Positive Eye Surgery Social History SMOKING STATUS: Former smoker ED Exam Narrative Physical exam: See [facility] for Dr. Lewis's Physical Exam Documentation. Course Quality Measures none Orders Category Date Time Status CT pelvis wo con Stat Exams 04/03/25 19:29 Completed US testicular Stat Exams 04/03/25 19:29 Completed Bilirubin,Direct Stat Lab 04/03/25 20:05 Completed CBC Stat Lab 04/03/25 20:05 Completed CMP [Comprehensive Metabolic Panel] Stat Lab 04/03/25 20:05 Completed Magnesium Stat Lab 04/03/25 20:05 Completed UA, C/S IF [Urinalysis, C/S if Indicated] Stat Lab 04/03/25 20:21 Completed Vital Signs Vital signs: Vital Signs Temperature 97.7 F 04/03/25 19:23 Pulse Rate 63 04/03/25 19:23 Respiratory Rate 18 04/03/25 19:23 Blood Pressure 153/75 H 04/03/25 19:23 Pulse Oximetry (%) 98 04/03/25 19:23 Urogenital - Male MDM Narrative MDM Narrative:: This section includes all my notes and documentations, including HPI, PE, and ED course. Eliezer Lewis MD HPI: 79 y/o male with Hx of BPH, Pancreatitis, and HTN BIBA from home presents with right groin pain x 4 days. Concerned about hernia. No nausea or vomiting. Eating normally. No fever or chills. No urinary symptoms. No other complaints. ROS: All negative except as documented in HPI. Physical Exam: General: Alert and oriented. No acute distress. Eyes: Conjunctivae and lids clear. ENT: No nasal congestion. Neck: Supple. Lungs: No respiratory distress. Abdomen: Soft and nontender. Normal bowel sounds. No distension. No rebound or guarding. Back: No CVA tenderness. Skin: Warm and dry. Neuro: Alert and oriented X 3. Genitalia: Normal anatomy. No inguinal hernia bilaterally. No scrotal erythema/edema/calor/tenderness. I reviewed EMS notes. I reviewed all diagnostic test results: My review of the Testicular US report is NAD. My review of the Pelvis CT report is NAD. Blood/urine tests unremarkable. At this point, diagnoses include: Right groin muscle strain Recommended supportive care. Based on my best medical judgment, made decision no further evaluation or treatment indicated at this time. Patient understands and agrees to the discharge instructions customized and printed, see below. Discharge Instructions from Dr. Lewis printed for you: 1. After evaluation, there is no hernia. 2. Your right groin pain is due to muscle strain. See attached handout. 3. Activity as tolerated. 4. Apply ice or heat if helpful. 5. Ibuprofen 200 mg every 6-8 hours today and tomorrow to decrease inflammation then as needed. Lidocaine patches and Tylenol with Codeine as needed. 6. See a private doctor on 04/05/2025 for recheck, and second opinion. Ask to review all test results and official radiology reports, to make sure you receive all necessary follow-ups and monitoring. 7. Seek immediate medical care with worsening or with any concerns. Eliezer Lewis MD Patient data External records reviewed:: [facility] previous records (Reviewed prior ED records from 02/18/25. Patient was seen for Pancreatitis.) and EMS form Clinical information provided by:: patient and EMS Social determinants that could affect healthcare access:: none Patient has the following chronic illnesses:: BPH, HTN, Pancreatitis How is presenting disease/condition affected by chronic disease/condition?: exacerbated by Evaluation data The following diagnostics were reviewed and interpreted by me:: lab results and radiology exam(s) Lab and/or radiology exams considered but not ordered:: None Interpretation Summary: I reviewed all diagnostic test results: My review of the Testicular US report is NAD. My review of the Pelvis CT report is NAD. Blood/urine tests unremarkable. Medications / Prescriptions Medications or Prescriptions considered but not ordered:: None Medication administrations:: None Consultations Consultation(s) initiated? (list below): No Diagnosis Urogenital Male Differential Diagnosis: urinary tract infection, epididymitis, prostatitis and inguinal hernia Most likely diagnosis given after review of the tests above:: Strain of muscle of the right groin region Admission Indicated Admission indicated?: not indicated Explain why admission is indicated or not indicated:: With no condition needing emergent intervention, there was no indication for admission. Admission Request Was there a request for admission?: No Disposition Plan Disposition Plan: Discharge Discharge Attestation Discharge Attestation: The patient and all family members were given an opportunity to ask questions and understood the discharge instructions. Discharge instructions specifically effects, indications for sooner follow up or return to the emergency department, and the expected course of current diagnosis. Patient condition: Stable Discharge Plan Plan Patient Disposition: HOME (Self Care) Prescriptions/Referrals Prescriptions/Med Rec: New acetaminophen-codeine 300-30 mg tablet 1 tab PO Q8H MDD 3 PRN (Reason: pain) Qty: 20 0RF lidocaine [Lidoderm] 5 % adhesive patch,medicated 1 patch topical QDAY PRN (Reason: pain) Qty: 30 0RF Rx Instructions: leave on most painful area for up to 12 hrs No Action tamsulosin 0.4 mg capsule 0.4 mg PO QDAY Patient Comments: GEE Carlton FOR 30 DAYS Referrals: Dylan Leone MD [Primary Care Provider, Family Practice] - In 1 week Problem List Clinical Impression: Strain of muscle of right groin region Patient/Caregiver Discharge Instructions Discharge Activity: activity as tolerated Education Materials: ED Groin Strain Additional Instructions: Discharge Instructions from Dr. Lewis printed for you: 1. After evaluation, there is no hernia. 2. Your right groin pain is due to muscle strain. See attached handout. 3. Activity as tolerated. 4. Apply ice or heat if helpful. 5. Ibuprofen 200 mg every 6-8 hours today and tomorrow to decrease inflammation then as needed. Lidocaine patches and Tylenol with Codeine as needed. 6. See a private doctor on 04/05/2025 for recheck, and second opinion. Ask to review all test results and official radiology reports, to make sure you receive all necessary follow-ups and monitoring. 7. Seek immediate medical care with worsening or with any concerns. Instrucciones de aaron del Dr. Lewis impresas para usted: 1. Tras la evaluaci?n, no se detect? ninguna hernia. 2. El dolor en la misa derecha se debe a cruzito distensi?n muscular. Consulte el folleto adjunto. 3. Realice actividad f?kim seg?n julien tolerancia. 4. Aplique hielo o calor si le resulta beneficioso. 5. [place] ibuprofeno de 200 mg cada 6-8 horas hoy y ma?rand para reducir la inflamaci?n, y luego seg?n sea necesario. Parches de lidoca?na y Tylenol con code?na seg?n sea necesario. 6. Consulte con un m?dico particular el 2024 para cruzito revisi?n y cruzito segunda opini?n. Solicite revisar todos los resultados de las pruebas e informes radiol?gicos oficiales para asegurarse de recibir todo el seguimiento y la monitorizaci?n necesarios. 7. Busque atenci?n m?dica inmediata si los s?ntomas empeoran o si tiene alguna inquietud. Print Language: Somali Stand Alone Forms: [employer]jo Award Info., Patient Portal Info Letter
--- NOTE | 2025-04-03 19:29 | XR_ITS ---
EXAMINATION: Testicular sonography complete TECHNIQUE: Grayscale sonographic images testes, assessment arterial inflow and venous outflow Doppler spectral analysis color flow analysis Date and time: April 03, 2025, 2030 hours INDICATIONS: Right testicular pain beginning 1 month ago. FINDINGS: Right testis 3.8 cm epididymis 11 mm Right epididymal cyst 5 mm Arterial flow the testicle. No testicular mass Mild right hydrocele Left testis 3.7 cm epididymis 9 mm 3 mm epididymal cyst Moderate varicocele No testicular torsion or testicular mass Small hydrocele IMPRESSION: No testicular torsion or testicular mass Small bilateral benign epididymal cysts Moderate left varicocele
--- NOTE | 2025-04-03 19:29 | XR_ITS ---
Examination: CT pelvis without intravenous contrast. 2-D sagittal and coronal reconstructions. Date and time of exam: April 03, 2025, 1942 hours INDICATIONS: Right groin pain this week CTDI: vol (mGy) : 5.59 DLP: (mGycm) : 258 Technique: Multiple 3 mm axial sections of the pelvis have been obtained with the 64 slice high resolution scanner. 2-D sagittal and coronal reconstructions. Low dose protocols were performed. One or more of the following dose reduction techniques were used; automated exposure control, adjustment of the mA and/or KV according to patient size, use of iterative reconstruction technique. Findings: Heavy abdominal aortic calcification Normal appendix No bowel obstruction Colonic diverticulosis Significant prostatomegaly AP dimension 4.4 cm No inguinal hernia No groin significant lymphadenopathy IMPRESSION: Significant prostatomegaly No inguinal hernia
[2025-04-03 20:16] VITALS: BP 147/80; PULSE 60; RESP 15; O2SAT 98
[2025-04-03 20:31] LABS: Collection Type, Urine Clean Catch
[2025-04-03 20:35] LABS: Basophils # (Auto) 0.1 Thou/mm3 (0.0-0.2); Basophils % (Auto) 1 % (0-2.5); Eosinophils # (Auto) 0.3 Thou/mm3 (0.0-0.5); Eosinophils % (Auto) 4 % (0-10); Hematocrit 38.7 % (41.0-53.0); Hemoglobin 12.7 g/dL (13.5-16.0); Immature Granulocytes Auto 0.01 Thou/mm3 (0.00-0.00); Lymphocytes # (Auto) 1.7 Thou/mm3 (1.0-4.8); Lymphocytes % (Auto) 22 % (10-50); Mean Corpuscular HGB Conc 32.8 g/dl (31.0-37.0); Mean Corpuscular Hemoglobin 29.9 pg (25.0-35.0); Mean Corpuscular Volume 91 fL (80-100); Monocytes # (Auto) 0.6 Thou/mm3 (0.0-0.8); Monocytes % (Auto) 8 % (0-12); Neutrophils # (Auto) 5.0 Thou/mm3 (1.8-7.7); Neutrophils % (Auto) 65 % (37-80); Nucleated Red Blood Cell # 0.00 Thou/mm3 (0.00-0.00); Nucleated Red Blood Cell % 0 /100 WBC (0); Platelet Count 163 Thou/mm3 (140-440); RDW Standard Deviation 41.9 fL (35.1-43.9); Red Blood Count 4.25 Miln/mm3 (4.50-5.90); White Blood Count 7.7 Thou/mm3 (3.8-10.6)
[2025-04-03 20:47] LABS: Bacteria,Urine Rare; Bilirubin,Urine Negative (Negative); Blood,Urine Negative (Negative); Clarity,Urine Clear (Clear/Hazy); Color,Urine Yellow (Lt Yel-Yel); Culture Indicated,Urine Not Indicated; Glucose, Urine Negative (Negative); Hyaline Casts,Urine 1 /hpf (0-1); Ketones,Urine Negative (Negative); Leukocyte Esterase,Urine Negative (Negative); Nitrite,Urine Negative (Negative); PH,Urine 6.0 (5.0-7.0); Protein,Urine 1+ (Neg - Trace); RBC,Urine 4 /hpf (0-3); Specific Gravity,Urine 1.031 (1.001-1.035); Squamous Epithelial Cell,Urine < 1 /hpf (0-5); Urobilinogen,Urine Negative mg/dL (0.0-1.0); WBC,Urine 4 /hpf (0-5)
[2025-04-03 20:49] LABS: Alanine Aminotransferase 11 U/L (10-49); Albumin, Serum 4.0 gm/dL (3.4-4.8); Albumin/Globulin Ratio 1.7 (1.2-2.2); Alkaline Phosphatase 74 U/L (46-116); Anion Gap 8 (7-16); Aspartate Amino Transferase 14 U/L (0-34); BUN/Creatinine Ratio 20 Ratio (12-20); Bilirubin,Direct 0.1 mg/dL (0.0-0.3); Bilirubin,Total 0.4 mg/dL (0.3-1.2); Blood Urea Nitrogen 26 mg/dL (9-23); Calcium 9.5 mg/dL (8.3-10.6); Calcium (Corrected) 9.5 mg/dL (8.5-10.1); Carbon Dioxide 26.7 mMol/L (20.0-31.0); Chloride 107 mMol/L (98-107); Creatinine (Component) 1.3 mg/dL (0.6-1.3); Estimated Creatinine Clearance 38.8 mL/min (>60); Globulin 2.3 gm/dL (2.3-3.5); Glucose 99 mg/dL (74-106); Magnesium 2.0 mg/dL (1.6-2.6); Osmolality,Calculated 287 (275-295); Potassium 4.1 mMol/L (3.4-5.1); Sodium 142 mMol/L (136-145); Total Protein 6.3 gm/dL (5.7-8.2); eGFR 55 See Note
[2025-04-03 21:47] VITALS: BP 147/80; PULSE 77; RESP 18; O2SAT 98
== END 2025-04-03 21:47 | disposition home or self-care (01) ==
PROVIDERS: Emergency Provider Emergency Medicine; PCP Family Medicine
DX: S39.011A Strain of muscle, fascia and tendon of abdomen, initial encounter (principal); N50.811 Right testicular pain; R10.31 Right lower quadrant pain; X58.XXXA Exposure to other specified factors, initial encounter
CPT/HCPCS: 36415; 72192; 76870; 80053; 81001; 82248; 83735; 85025; 99283

== ENCOUNTER 2025-04-10 14:52 | Emergency (ER) | payer OTHER, MEDICAID, SELFPAY ==
[2025-04-10 14:56] VITALS: BP 178/104; PULSE 71; PULSE 88; RESP 16; RESP 20; TEMP 36.8; O2SAT 98
--- NOTE | 2025-04-10 15:11 | PD.EDADULT ---
ED General RME/HPI General Chief complaint: General Adult/Misc Complain Stated complaint: GROIN PAIN Time Seen by Provider: 04/10/25 14:54 Arrival date/time: 04/10/25 14:52 CC: Right groin pain HPI ongoing for the past 2 weeks. EMS reports stable vital signs. Patient states he has an appointment tomorrow with his doctor but the pain has become significant where he is not able to wait. Patient is awake alert oriented nontoxic-appearing not in any acute distress. Patient states he was seen here 2 weeks ago and was told that he does not have a hernia. Patient describes the pain as a burning sensation. Related Data Home Medications ?Medication ?Instructions ?Recorded ?Confirmed tamsulosin 0.4 mg capsule 0.4 mg PO QDAY 10/31/22 02/19/25 Previous Rx's ?Medication ?Instructions ?Recorded acetaminophen 300 mg-codeine 30 mg 1 tab PO Q8H PRN pain #20 tabs 04/03/25 tablet lidocaine 5 % topical patch 1 patch topical QDAY PRN pain #30 04/03/25 (Lidoderm) ea ketorolac 10 mg tablet 10 mg PO Q8H #10 tabs 04/10/25 Allergies Allergy/AdvReac Type Severity Reaction Status Date / Time No Known Allergies Allergy Verified 04/03/25 19:20 Review of Systems Review of Systems Narrative Review of Systems: GEN: No fever, no chills, no weight loss EYES: No discharge, no visual changes, no pain HEENT: No ear pain, no congestion, no sore throat PULM: No shortness of breath, no cough, no congestion CV: No chest pain, no dyspnea on exertion, no palpitations GI: No nausea, no vomiting, no diarrhea, no pain, no constipation : No frequency, no urgency, no dysuria MUSC/SKEL: No joint pain, no back pain SKIN: No rash PSYCH: No hallucinations, no depression HEME/LYMPH: No easy bleeding or bruising tendencies NEURO: No weakness, no headache ED Exam Narrative Physical exam: [General: Not in any acute distress Head normocephalic HEENT: Within acceptable limits Neck is supple nontender Chest equal chest rise nontender to palpation Respiratory: Clear to auscultation no wheezes crackles or rubs CV: Rate rhythm is regular no murmurs rubs or clicks Abdomen right lower quadrant, just above the inguinal crease the patient has site-specific area of tenderness with palpation no masses appreciated no bulging. No erythema open lesions induration or ulceration. Otherwise abdomen is flat soft no masses positive bowel sounds all 4 quadrants Back: No CVA tenderness no spinous process tenderness from cervical spine thoracic and lumbar spine Skin: Intact no petechiae rash induration ulceration or crepitus Extremities: Moving all extremities against resistance cap refill less than 2 seconds neurosensory intact Neuro: Awake alert oriented x3 Glascow coma 15 no focal deficits] Course Course Course Narrative: Laboratory work is unremarkable including urine, the CT for the last time is unremarkable as well there is no bulge in the abdomen the patient is not toxic appearing with stable vital signs this time we will discharge the patient home with medication is to follow-up with his primary care doctor tomorrow. Quality Measures none Orders Category Date Time Status CBC Stat Lab 04/10/25 15:35 Completed CMP [Comprehensive Metabolic Panel] Stat Lab 04/10/25 15:35 Completed Urinalysis Stat Lab 04/10/25 17:00 Completed Ketorolac Inj [Toradol Inj] Med 04/10/25 15:33 Discontinued 15 mg IM X1 ONE Vital Signs Vital signs: Vital Signs Temperature 98.2 F 04/10/25 14:56 Pulse Rate 71 04/10/25 14:56 Respiratory Rate 16 04/10/25 14:56 Blood Pressure 178/104 H 04/10/25 14:56 Pulse Oximetry (%) 98 04/10/25 14:56 Oxygen Delivery Method Room Air 04/10/25 14:56 Discharge Plan Plan Patient Disposition: HOME (Self Care) Patient condition on transfer: Stable Prescriptions/Referrals Prescriptions/Med Rec: New ketorolac 10 mg tablet 10 mg PO Q8H Qty: 10 0RF Rx Instructions: maximum total duration of 5 days from all oral, intranasal, or parenteral formulations No Action tamsulosin 0.4 mg capsule 0.4 mg PO QDAY Patient Comments: GEE Carlton FOR 30 DAYS acetaminophen-codeine 300-30 mg tablet 1 tab PO Q8H MDD 3 PRN (Reason: pain) Qty: 20 0RF lidocaine [Lidoderm] 5 % adhesive patch,medicated 1 patch topical QDAY PRN (Reason: pain) Qty: 30 0RF Rx Instructions: leave on most painful area for up to 12 hrs Referrals: Dylan Leone MD [Physician, Family Practice] - In 1 week No Primary/Family,Physician [Primary Care Provider] - In 1 week Problem List Clinical Impression: Left lower quadrant abdominal pain Patient/Caregiver Discharge Instructions Education Materials: Abdominal Pain Additional Instructions: Follow-up with your doctor tomorrow as stated. If there is a worsening of symptoms or spike a high fever return to the emergency room meetly for further evaluation. Print Language: Lithuanian Stand Alone Forms: [employer] Award Info., Patient Portal Info Letter, Work/School Release PA/MOTION AND TIME STUDY TEACHER Supervising Physician PA/MOTION AND TIME STUDY TEACHER Supervising Physician: Tex Bal ENP [facility] Clinical Information Provided by: patient and EMS [facility] Meds/Rx considered, not ordered None Labs/Rad/Tests considered, not ordered None Labs Labs: interpreted by vt Lab(s) Interpretation(s): CBC shows no leukocytosis mild but stable anemia no thrombocytopenia. CMP shows no significant electrolyte imbalances renal impairment transaminitis or T. bili elevation. Medication Administration(s) Medication Administration History Discontinued Medications Ketorolac Tromethamine (Ketorolac Inj 30 Mg/Ml Vial) 15 mg IM X1 ONE Stop: 04/10/25 15:34 Last Admin: 04/10/25 16:52 Dose: 15 mg Documented By:
[2025-04-10 15:50] LABS: Basophils # (Auto) 0.1 Thou/mm3 (0.0-0.2); Basophils % (Auto) 1 % (0-2.5); Eosinophils # (Auto) 0.4 Thou/mm3 (0.0-0.5); Eosinophils % (Auto) 7 % (0-10); Hematocrit 39.9 % (41.0-53.0); Hemoglobin 13.1 g/dL (13.5-16.0); Immature Granulocytes Auto 0.01 Thou/mm3 (0.00-0.00); Lymphocytes # (Auto) 1.4 Thou/mm3 (1.0-4.8); Lymphocytes % (Auto) 26 % (10-50); Mean Corpuscular HGB Conc 32.8 g/dl (31.0-37.0); Mean Corpuscular Hemoglobin 29.9 pg (25.0-35.0); Mean Corpuscular Volume 91 fL (80-100); Monocytes # (Auto) 0.5 Thou/mm3 (0.0-0.8); Monocytes % (Auto) 9 % (0-12); Neutrophils # (Auto) 3.0 Thou/mm3 (1.8-7.7); Neutrophils % (Auto) 57 % (37-80); Nucleated Red Blood Cell # 0.00 Thou/mm3 (0.00-0.00); Nucleated Red Blood Cell % 0 /100 WBC (0); Platelet Count 173 Thou/mm3 (140-440); RDW Standard Deviation 41.4 fL (35.1-43.9); Red Blood Count 4.38 Miln/mm3 (4.50-5.90); White Blood Count 5.3 Thou/mm3 (3.8-10.6)
[2025-04-10 16:04] LABS: Alanine Aminotransferase 50 U/L (10-49); Albumin, Serum 4.0 gm/dL (3.4-4.8); Albumin/Globulin Ratio 1.5 (1.2-2.2); Alkaline Phosphatase 91 U/L (46-116); Anion Gap 8 (7-16); Aspartate Amino Transferase 22 U/L (0-34); BUN/Creatinine Ratio 16 Ratio (12-20); Bilirubin,Total 0.4 mg/dL (0.3-1.2); Blood Urea Nitrogen 14 mg/dL (9-23); Calcium 8.7 mg/dL (8.3-10.6); Calcium (Corrected) 8.7 mg/dL (8.5-10.1); Carbon Dioxide 29.1 mMol/L (20.0-31.0); Chloride 105 mMol/L (98-107); Creatinine (Component) 0.9 mg/dL (0.6-1.3); Globulin 2.6 gm/dL (2.3-3.5); Glucose 105 mg/dL (74-106); Osmolality,Calculated 283 (275-295); Potassium 3.7 mMol/L (3.4-5.1); Sodium 142 mMol/L (136-145); Total Protein 6.6 gm/dL (5.7-8.2); eGFR > 60 See Note
[2025-04-10 16:23] VITALS: BP 179/101; PULSE 68; RESP 16; TEMP 36.7; O2SAT 99
[2025-04-10] MEDS: KETOROLAC INJ 30 MG/ML VIAL 15 MG IM (16:52)
[2025-04-10 16:54] VITALS: BP 174/99; PULSE 67; RESP 18; O2SAT 98; BMI 23.5
--- NOTE | 2025-04-10 17:00 | PC.NURSE ---
UA SENT TO LAB
[2025-04-10 17:17] LABS: Collection Type, Urine Clean Catch; Squamous Epithelial Cell,Urine 0 /hpf (0-5)
[2025-04-10 17:31] LABS: Bilirubin,Urine Negative (Negative); Blood,Urine Negative (Negative); Clarity,Urine Clear (Clear/Hazy); Color,Urine Lt-Yellow (Lt Yel-Yel); Glucose, Urine Negative (Negative); Ketones,Urine Negative (Negative); Leukocyte Esterase,Urine Negative (Negative); Nitrite,Urine Negative (Negative); PH,Urine 7.0 (5.0-7.0); Protein,Urine Negative (Neg - Trace); RBC,Urine 3 /hpf (0-3); Specific Gravity,Urine 1.015 (1.001-1.035); Urobilinogen,Urine Negative mg/dL (0.0-1.0); WBC,Urine 1 /hpf (0-5)
== END 2025-04-10 18:25 | disposition home or self-care (01) ==
PROVIDERS: Registered Nurse General Practice; Emergency Provider Emergency Medicine
DX: R10.32 Left lower quadrant pain (principal)
CPT/HCPCS: 36415; 80053; 81001; 85025; 96372; 99283; J1885